=== PATIENT | male | born 1985 | race Caucasian/White ===

== ENCOUNTER → 2020-07-13 09:38 | Outpatient (BNVA) | payer OTHER, SELFPAY | PROVIDERS: PCP Internal Medicine; Visit Provider Physician Assistant ==

== ENCOUNTER 2020-07-21 07:20 | Outpatient (REF) | payer OTHER, SELFPAY ==
--- NOTE | 2020-07-21 07:22 | MR_ITS ---
EXAMINATION: MR KNEE WITHOUT CONTRAST, LEFT CLINICAL INFORMATION: Left knee pain. Status post slip and fall injury 1 1/2 weeks ago. Pain with walking and extension. History of ACL reconstruction 2 years ago. COMPARISON: Left knee MRI dated 06/16/2018. TECHNIQUE: MRI of the knee without contrast was performed using routine sequences on a high-field scanner. FINDINGS: MENISCI: Medial Meniscus: Tearing in the undersurface of the central third of the posterior horn. (5:), (4:-). Degenerative changes in the undersurface of the mid and posterior body (5:-). Lateral Meniscus: Intact. LIGAMENTS: Cruciate: Postsurgical changes of ACL reconstruction. There is complete tear of the reconstructed ACL fibers. Intact PCL. Collateral: Intact EXTENSOR MECHANISM: Intact ARTICULAR CARTILAGE/BONE: Patellofemoral Compartment: Normal Medial Compartment: Normal Lateral Compartment: Normal JOINT FLUID AND BURSAE: Physiologic joint space fluid. No effusion. MR/MR knee LT wo con IMPRESSION: Left knee: 1. Mild undersurface tearing in the central third of the posterior horn of the medial meniscus. Degenerative changes in the undersurface of the mid and posterior medial meniscal body. 2. Postsurgical changes of ACL reconstruction. Complete tear of the reconstructed ACL fibers. 3. Preserved tricompartmental articular cartilage. 4. Physiologic joint space fluid without effusion.
== END 2020-07-21 07:21 | disposition home or self-care (01) ==
LOC: HO.MRI 07:20
PROVIDERS: Visit Provider Physician Assistant
DX: S83.207A Unspecified tear of unspecified meniscus, current injury, left knee, initial encounter (principal)
CPT/HCPCS: 73721

== ENCOUNTER → 2020-08-04 12:38 | Outpatient (BNVA) | payer OTHER, SELFPAY | PROVIDERS: PCP Internal Medicine; Visit Provider Physician Assistant ==

== ENCOUNTER 2020-08-06 14:00 | Outpatient (RCR) | payer OTHER, SELFPAY ==
--- NOTE | 2020-07-23 12:42 | MHC.PT.OD ---
[facility] [place] Office [place] Office [place] Office [address] Beth Araiza 140 [facility] [phone] F: [phone] F: [phone] F: [phone] F: [phone] Physical Therapy Daily Note Diagnosis: [id number] Unspecified tear of unspecified meniscus, current injury, left initial encounter. signed by Catrina Elizondo PA-C date of order 07/13/2020. Date of Surgery: 08/30/2018: L Date of Evaluation: 07/16/20 Date of Treatment: 07/23/20 Treatments to Date: 3 Cancellations to Date: No Shows to Date: Authorized Visits: 60 Insurance End Date: Precautions/ Contraindications:OMPARISON: Left knee MRI dated 06/16/2018. TECHNIQUE: MRI of the knee without contrast was performed using routine sequences on a high-field scanner. FINDINGS: MENISCI: Medial Meniscus: Tearing in the undersurface of the central third of the posterior horn. (5:), (4:-). Degenerative changes in the undersurface of the mid and posterior body (5:-). Lateral Meniscus: Intact. LIGAMENTS: Cruciate: Postsurgical changes of ACL reconstruction. There is complete tear of the reconstructed ACL fibers. Intact PCL. Collateral: Intact EXTENSOR MECHANISM: Intact ARTICULAR CARTILAGE/BONE: Patellofemoral Compartment: Normal Medial Compartment: Normal Lateral Compartment: Normal JOINT FLUID AND BURSAE: Physiologic joint space fluid. No effusion. MR/MR knee LT wo con IMPRESSION: Left knee: 1. Mild undersurface tearing in the central third of the posterior horn of the medial meniscus. Degenerative changes in the undersurface of the mid and posterior medial meniscal body. 2. Postsurgical changes of ACL reconstruction. Complete tear of the reconstructed ACL fibers. 3. Preserved tricompartmental articular cartilage. 4. Physiologic joint space fluid without effusion. Dictated By:Ayse Ceja MD Signed By:<Electronically signed by Ayse Ceja MD in OV> Subjective: Pt had MRI see report above to see [facility] today at 1:30 to review findings of MRI. Has been expressing some improvement in pain of knee since start of care but continues to ambulate with flexed knee. Has been reporting constant L LE parathesias/cold which appears to be lumbar radiculopathy pt expressing history of HNP L5/S1- advised pt to reach out to PCP regarding this- would likely benefit from PT for this. Pain Score and Location: 9 L knee Objective Flowsheet: Tests & Measures -16 degrees ext to 135 flexion sx medial joint line Exercises did not do bike today 07/23/2020 Seated heel prop knee ext assessment -16 degrees Isometric quad set with bolster behind knee x 5 sec hold x 10R Encouraged/educated re: trial of isometric quad sets to tolerance Seated gastroc stretch with strap, seated HS stretch Seated HS stretch increased L radicular sx so modified in standing with less sx provocation. Trial of pball lumbar decompression as pt radicular sx are severe- advised to reach out to PCP/and or ortho re: extending prescription to treat this. Education re: heel prop knee ext stretch to tolerance at home Encouraged using dongjoy hinged mini ACL brace until he can determine what ortho recommends due to instability/pain/limited weight-bearing. Ankle pumps x 3 sets 10R SUPINE AAROM HEEL SLIDE reviewed unable to perform SLR due to lack of knee extension Education re: lumbar support/towel roll to ease sx Educated re: abdominal brace support x 5 sec hold x 2 sets 10R Education re: benefit in consulting/inquiring with MD regarding use of abdominal binder for during heavy loads/lifting tasks at work due to history of repeated abdominal surgery/hx hernia repair/ongoing back issues Educated pt how to apply ROCKTAPE to V strip to offload pressure tibiofemoral jt knee as it has reduced pain with previous application (it appears therapist may have omitted this in error from previous session) Pt educated re: application/removal/indications for use Therapist did not apply tape as he he was having follow up with ortho so they can assess knee in current state Gait training with bilateral axillary crutches to review sequencing with stairs and use of rail Pt reported was previously not holding railing Educated to put both crutches under one arm always use rail on the other side, ascend R LE, descend L LE to reduce risk of falls. Gait training with axillary crutches on level surface to promote heel strike>toe off to tolerance weightbear as tolerated. Modalities Trial of pulsed US 3.3 MHZ to Medial aspect L knee with small bolster under knee at 1.0 springer cm2 x 8 minutes in effort to reduce pain/inflammation. Assessment: Pt to see orthopedics today to review MRI outcome; Await plan Pt advised to consult with PCP re: ongoing sx of what appears to be [id number] radiculopathy. Upon brief screening pt able to perform modified heel raise on the L LE, but reports constant cold feeling in extremity. Advised him to trial pball traction lying as it relieved both pressure on his L knee and L lumbar sx. Encouraged heel prop extension to tolerance in goal of achieving knee extension AROM>AAROM. Pt presented to office today with improved ability to rise and sit from a chair, however tolerance for weight-bearing and knee ext remains limited due to extent of findings on MRI. Therapist did not discuss MRI with patient- pt to see MD office today at 1:30 to go over outcome of MRI. PT Plan: Await plan from orthopedics- PT AWAITING UPDATED ORDERS Improve knee extension> quad strength> weight-bearing status/gait training 2x/week x 4 weeks Short Term Goals: 1. AAROM knee ext -10. 2. AROM knee ext -20. 3. SLR into flexion with good eccentric quad control. 4. Demonstrate symmetrical weight bearing step through pattern with two axillary crutches. Intermediate Goals: 1. L knee AROM 0 to 130 degrees. 2. Strength quadriceps 5/5. 3. Strength HS 5/5. 4. Reciprocal stair negotiation without use of AD. 5. I HEP MOD I. Electronically signed by: Edie Landry, PT, DPT
== END 2020-09-10 11:07 | disposition other institution (70) ==
LOC: HO.PTWFD 14:00
PROVIDERS: PCP Internal Medicine; Visit Provider Physician Assistant
DX: S83.207D Unspecified tear of unspecified meniscus, current injury, left knee, subsequent encounter (principal)
CPT/HCPCS: 97014; 97035; 97110; 97116; 97161; 97530

== ENCOUNTER 2020-08-20 06:05 | Day surgery (SDC) | payer OTHER, SELFPAY ==
[2020-08-05 18:46] VITALS: BMI 28.5
[2020-08-13 19:48] VITALS: BMI 28.5
--- NOTE | 2020-08-19 08:27 | P.CONAN_ITS ---
Documented by User: Eli Goel 08/19/20 08:28 HPI - Anesthesia Eval Consult details Narrative: 34yo M for ACL Repair Arthroscopic Revision with Allograft PMFSH Active Problems Active Problems: All Active Problems (Updated 08/13/20 @ 19:43 by Naty Vega RN) Tear of meniscus of left knee (Acute) Tears of meniscus and ACL of left knee (Acute) S/P ACL reconstruction (Acute) Past Medical History Medical History Anxiety Depression Diverticulosis History of diverticulitis Hypertension Ulcerative colitis Surgical History Surgical History (Updated 08/20/20 @ 07:47 by Ivonne Salcedo) H/O colectomy H/O exploratory laparotomy (~2019) History of appendectomy History of colonoscopy History of incisional hernia repair Social History Social History Smoking Status: Never smoker Use of substances other than those prescribed or required for medical reasons: Yes Substance Use Frequency: Weekly Advance Directives: No Advance Directives Information Provided: No Advance Directives on File: No Recently lost weight without trying: No Current occupation: [email or web address] - Right Handed Meds Allergies Allergy/AdvReac Type Severity Reaction Status Date / Time No Known Allergies Allergy Verified 08/20/20 06:26 [No Known Allergies*] Home Medications Medication Instructions Recorded Confirmed Last Taken Type citalopram 10 mg tablet 5 mg PO DAILY 07/13/20 08/20/20 08/20/20 History 0515 lisinopril 5 mg tablet 7.5 mg PO DAILY 07/13/20 08/05/20 Unknown History mesalamine 400 mg capsule (with 1,200 mg PO DAILY 07/13/20 08/05/20 Unknown History delayed release tablets inside) Exam Exam Date and Time: August 19, 2020 0827 Height,Weight and Vital Signs: Height 6 ft Weight 95.254 kg Assessment and Plan Assessment Anesthesia Assessment: Chart Reviewed Documented by User: Ivonne Salcedo 08/20/20 07:50 PMFSH Past Medical History Medical History Anxiety Depression Diverticulosis History of diverticulitis Hypertension Ulcerative colitis Family History Family history of problems with anesthesia: No Surgical History Surgical History (Updated 08/20/20 @ 07:47 by Ivonne Salcedo) H/O colectomy H/O exploratory laparotomy (~2019) History of appendectomy History of colonoscopy History of incisional hernia repair History of Problems with Anesthesia: No Social History Social History Smoking Status: Never smoker Use of substances other than those prescribed or required for medical reasons: Yes Substance Use Frequency: Weekly Advance Directives: No Advance Directives Information Provided: No Advance Directives on File: No Recently lost weight without trying: No Current occupation: [employer] - Right Handed Meds Allergies Allergy/AdvReac Type Severity Reaction Status Date / Time No Known Allergies Allergy Verified 08/20/20 06:26 [No Known Allergies*] Home Medications Medication Instructions Recorded Confirmed Last Taken Type citalopram 10 mg tablet 5 mg PO DAILY 07/13/20 08/20/20 08/20/20 History 0515 lisinopril 5 mg tablet 7.5 mg PO DAILY 07/13/20 08/05/20 Unknown History mesalamine 400 mg capsule (with 1,200 mg PO DAILY 07/13/20 08/05/20 Unknown History delayed release tablets inside) Exam Height,Weight and Vital Signs: Vital Signs Temp Pulse Resp BP Pulse Ox 08/20/20 06:13 97.1 F 93 18 155/108 H 97 Airway Mallampati Class: II TM Dist: >3cm Neck ROM: Full Heart: RRR Lungs: CTAB Assessment and Plan Assessment Anesthesia Assessment: Anesthesia Plan Discussed and Chart Reviewed Final Anesthetic Review NPO: Yes ASA Class: II Final Preanesthetic Review: No Changes in Pt Med Stat, Meds/Allgs Chart Reviewed and Anes Risks/Benef Reviewed Patient Risk: Low Procedure Risk: Low Assessment/Block/Sedation in SS: Assess/Block/Sedation- Anesthetic Plan Anesthetic Plan: GA and Regional Block (Left adductor canal block) Disposition: Standard PACU
[2020-08-20] VITALS (16 sets, daily range): BP systolic 133–167; BP diastolic 83–108; PULSE 79–101; RESP 16–31; TEMP 36.2–36.5; O2SAT 92–100
[2020-08-20] MEDS: Lactated Ringers 1,000 ML 100 ML IVCONT (06:39)
--- NOTE | 2020-08-20 07:27 | MHC.SHP ---
Pre-Procedural Eval Section A The patient is an INPATIENT: No Changes since office visit: No Cold of Flu in the past 2 weeks, No New Medical Problems, No Changes in Medication and No Patient answered all questions The History & Physical has been completed within 30 days and I have reviewed it.: Yes Section B Chief Complaint: knee pain Allergies: Allergies Allergy/AdvReac Type Severity Reaction Status Date / Time No Known Allergies Allergy Verified 08/20/20 06:26 [No Known Allergies*] Plan I have reviewed the history and physical and performed a pertinent physical examination on my patient. No changes have occurred unless specified.
--- NOTE | 2020-08-20 10:04 | W.PM.OPN ---
Operative Note Operative Note Date of Service: 08/20/20 Narrative: OPERATIVE NOTE-ACL RECONSTRUCTION SURGEON: Dr Imani Kimball) Instrum METAL POLISHER: Pattie CRUZ , Catrina CRUZ PREOP DIAGNOSIS: Recurrent ACL tear right knee POSTOP DIAGNOSIS: Same OPERATIVE PROCEDURE: Revision ACL reconstruction with bone patellar bone allograft right knee CLINICAL NOTE: This gentleman who 2 years ago underwent successful ACL reconstruction suffered another injury. She he has recurrent instability. Investigations confirmed a re-tear. Therefore after explaining the risks benefits and alternatives and answering all his questions was mutually agreed upon cared following procedure. MOTION: Full range of motion STABILITY: Positive Sloan's and pivot shift. Collateral ligaments intact OPERATIVE DETAILS PREPARATION: GA, regional block, standard technique, tourniquet to 300 mm of mercury for 81 minutes SURGICAL TIME-OUT: Patient is identified. Procedure confirmed. Site confirmed. Medical and allergy history is reviewed. Preoperative antibiotics were given. Standard DVT prophylaxis in place. All other items discussed and agreed upon. INCISIONS: Superolateral, inferolateral, inferomedial stab incisions. Proximal medial metaphyseal incision for tibial tunnel and graft insertion SYNOVIUM: Clear SYNOVIAL fluid: Clear MEDIAL COMPARTMENT: The tibial and femoral articular surfaces were intact. The medial meniscus is was explored fully intact LATERAL COMPARTMENT: Lateral meniscus was intact. The tibial femoral articular surfaces intact. Popliteus tendon intact ANTERIOR COMPARTMENT: . Medial lateral gutters clear. suprapatellar pouch clear. Patella and femoral articular surfaces were intact. INTERCONDYLAR NOTCH: The ACL was obviously torn. Using combination of the ArthroCare Wand and the Ultra cut, the remnants of the ACL were removed. The PCL was identified. The hieq-mca-zze position was completely cleared. The Ultra cut was used in order to identify the ctcf-mtq-zpd position more clearly. The Arthrex guide was then used in standard fashion through the proximal medial metaphyseal incision to establish the tibial tunnel. The guidewire was inserted was deemed to be in a good position and then it was over-reamed with a 10 mm Reamer. The tunnel was then fully rasped. At the same time as the tibial tunnel was being made the graft was prepared. It was measured to be 100 mm with 2 300 mm blocks. On the femoral side is singular drill hole was made to prepare for the Jacome [employer] Nephew endo-button. The tibial side had 2 drill holes and Tycron sutures placed through it. Both bone blocks were 30 mm. With the knee flexed approximately 85 degrees and in standard position a, a Beath needle was drilled out through the anterolateral cortex. The guidewire was then over-reamed to a 35 mm depth. The bony fragments were then all removed. From outside in the wire was measured and it was determined that a 60 mm endo button was necessary. And therefore this was brought up and attached to the bone block. After the knee had been irrigated of loose bony fragments the sutures that were in the Endobutton placed through the Beath needle. It was then pulled out through the anterolateral is a side of the knee. The graft was then passed through the tibial tunnel across the PCL into the femoral condyle tunnel successfully. The Endobutton was then deployed. It was then cycled a few times. It appeared to be very solid but approximately 4 mm of the bone block was protruding it. Therefore has elected to get a fluoroscopic image to confirm the position of the Endobutton. Simultaneous to this we let the tourniquet down. It was in the appropriate place. Therefore with the knee flexed 15 degrees and over a guidewire a 25 by 9 mm BioScrew was inserted with excellent purchase. The knee was then placed through range of motion had full extension full flexion is. Had a negative Sloan and pivot shift therefore proceeded closure. All incisions were closed with interrupted 3-0 Dexon Dermabond Steri-Strips and sterile dressing. The leg was placed in a brace. The patient's anesthesia was then reversed and transferred to the bed then to the recovery good condition. Intraoperatively there was 10-15 cc blood loss. No complications.
[2020-08-20] MEDS: Acetaminophen 325 MG TABLET 975 MG PO (10:14)
[2020-08-20] MEDS: oxyCODONE HCl Immed Release 5 MG TABLET 10 MG PO (10:15)
[2020-08-20] MEDS: HYDROmorphone HCl 0.5 MG/0.5 ML SYRINGE 0.25 MG IVPUSH ×5 (10:19→11:05)
[2020-08-20] MEDS: Ketorolac Tromethamine 15 MG/ML VIAL IVPUSH (11:03)
== END 2020-08-20 12:23 | disposition home or self-care (01) ==
PROVIDERS: PCP Internal Medicine; Visit Provider Orthopaedic Surgery
PROC: (CPT 29888; principal; 2020-08-20 07:30)
DX: S83.511A Sprain of anterior cruciate ligament of right knee, initial encounter (principal); M23.611 Other spontaneous disruption of anterior cruciate ligament of right knee; S89.91XA Unspecified injury of right lower leg, initial encounter; X58.XXXA Exposure to other specified factors, initial encounter; Y93.9 Activity, unspecified; Y92.9 Unspecified place or not applicable; Y99.8 Other external cause status; I10 Essential (primary) hypertension; Z79.899 Other long term (current) drug therapy
CPT/HCPCS: 29888; C1713; C1763; C1769; J0171; J0690; J1100; J1170; J1885; J2250; J2405; J3010

== ENCOUNTER → 2020-09-01 09:50 | Outpatient (BNVA) | payer OTHER, SELFPAY | PROVIDERS: PCP Internal Medicine; Visit Provider Physician Assistant ==

== ENCOUNTER → 2020-09-15 11:37 | Outpatient (BNVA) | payer OTHER, SELFPAY | PROVIDERS: PCP Internal Medicine; Visit Provider Physician Assistant ==

== ENCOUNTER → 2020-09-29 08:56 | Outpatient (BNVA) | payer OTHER, SELFPAY | PROVIDERS: PCP Internal Medicine; Visit Provider Physician Assistant ==

== ENCOUNTER → 2020-10-23 09:03 | Outpatient (BNVA) | payer OTHER, SELFPAY | PROVIDERS: Visit Provider Physician Assistant ==

== ENCOUNTER → 2020-10-28 09:56 | Outpatient (BNVA) | payer OTHER, SELFPAY | PROVIDERS: Visit Provider Physician Assistant ==

== ENCOUNTER 2020-10-29 08:55 | Day surgery (SDC) | payer OTHER, SELFPAY ==
--- NOTE | 2020-10-28 14:15 | P.CONAN_ITS ---
Documented by User: Eli Goel 10/28/20 14:16 HPI - Anesthesia Eval Consult details Narrative: 34yo M for Left I&D,debridement of knee s/p L ACL repair with GA 07/2020 prn opioids PMFSH Active Problems Active Problems: All Active Problems (Updated 10/28/20 @ 13:00 by Pattie Grant PA-C) Abscess involving suture (Acute) S/P reconstruction of anterior cruciate ligament (Acute) Tear of meniscus of left knee (Acute) Tears of meniscus and ACL of left knee (Acute) S/P ACL reconstruction (Acute) Past Medical History Medical History Anxiety Depression Diverticulosis History of diverticulitis Hypertension Ulcerative colitis Family History Family history of problems with anesthesia: No Surgical History Surgical History H/O colectomy H/O exploratory laparotomy (~2019) History of appendectomy History of colonoscopy History of incisional hernia repair History of Problems with Anesthesia: No Social History Social History Smoking Status: Never smoker Use of substances other than those prescribed or required for medical reasons: Yes Substance Use Frequency: Daily Are you DNR?: No Advance Directives: No Advance Directives Information Provided: Yes Current occupation: [employer] - [employer] Meds Allergies Allergy/AdvReac Type Severity Reaction Status Date / Time No Known Allergies Allergy Verified 10/28/20 10:16 [No Known Allergies*] Home Medications Medication Instructions Recorded Confirmed Last Taken Type citalopram 10 mg tablet 5 mg PO DAILY 07/13/20 08/20/20 08/20/20 History 0515 lisinopril 5 mg tablet 7.5 mg PO DAILY 07/13/20 08/05/20 10/29/20 History mesalamine 400 mg capsule (with 1,200 mg PO DAILY 07/13/20 08/05/20 Unknown History delayed release tablets inside) Exam Exam Date and Time: October 28, 2020 1415 Assessment and Plan Assessment Anesthesia Assessment: Chart Reviewed Documented by User: Ivonne Salcedo 10/29/20 09:28 PMFSH Past Medical History Medical History Anxiety Depression Diverticulosis History of diverticulitis Hypertension Ulcerative colitis Surgical History Surgical History H/O colectomy H/O exploratory laparotomy (~2019) History of appendectomy History of colonoscopy History of incisional hernia repair Social History Social History Smoking Status: Never smoker Use of substances other than those prescribed or required for medical reasons: Yes Substance Use Frequency: Daily Are you DNR?: No Advance Directives: No Advance Directives Information Provided: Yes Current occupation: [employer] m[employer] - [employer] Meds Allergies Allergy/AdvReac Type Severity Reaction Status Date / Time No Known Allergies Allergy Verified 10/28/20 10:16 [No Known Allergies*] Home Medications Medication Instructions Recorded Confirmed Last Taken Type citalopram 10 mg tablet 5 mg PO DAILY 07/13/20 08/20/20 08/20/20 History 0515 lisinopril 5 mg tablet 7.5 mg PO DAILY 07/13/20 08/05/20 10/29/20 History mesalamine 400 mg capsule (with 1,200 mg PO DAILY 07/13/20 08/05/20 Unknown History delayed release tablets inside) Exam Height,Weight and Vital Signs: Vital Signs Temp Pulse Resp BP Pulse Ox 10/29/20 09:06 97.6 F 87 16 155/99 H 97 Airway Mallampati Class: II TM Dist: >3cm Neck ROM: Full Heart: RRR Lungs: CTAB Assessment and Plan Assessment Anesthesia Assessment: Anesthesia Plan Discussed and Chart Reviewed Final Anesthetic Review NPO: Yes ASA Class: II Final Preanesthetic Review: No Changes in Pt Med Stat, Meds/Allgs Chart Reviewed, Consent Obtained/Reviewed and Anes Risks/Benef Reviewed Patient Risk: Low Procedure Risk: Low Assessment/Block/Sedation in SS: Assess/Block/Sedation-SS Anesthetic Plan Anesthetic Plan: GA Disposition: Standard PACU
[2020-10-29] VITALS (11 sets, daily range): BP systolic 108–155; BP diastolic 59–103; PULSE 69–87; RESP 16–20; TEMP 36.4–36.5; O2SAT 97–100; BMI 32.5
--- NOTE | 2020-10-29 07:23 | MHC.SHP ---
Pre-Procedural Eval Section A The patient is an INPATIENT: No Changes since office visit: No Cold of Flu in the past 2 weeks, No New Medical Problems, No Changes in Medication and No Patient answered all questions The History & Physical has been completed within 30 days and I have reviewed it.: Yes Section B Chief Complaint: abscess lower limb Allergies: Allergies Allergy/AdvReac Type Severity Reaction Status Date / Time No Known Allergies Allergy Verified 10/28/20 10:16 [No Known Allergies*] Plan I have reviewed the history and physical and performed a pertinent physical examination on my patient. No changes have occurred unless specified.
[2020-10-29] MEDS: Lactated Ringers 1,000 ML 100 ML IVCONT (09:17)
--- NOTE | 2020-10-29 11:01 | W.PM.OPN ---
Operative Note Operative Note Date of Service: 10/29/20 Narrative: OPERATIVE PROCEDURE NOTE SURGEON: Dr. 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 The lower metaphyseal tibial incision has had intermittent did discharge. It could be a stitch abscess. It. That it was cleared up but had a little bit of drainage and therefore after explaining the risks benefits and alternatives and answering all his questions to his which agreed upon care following procedure OPERATIVE PROCEDURE Under an LMA anesthetic the patient was placed supine on the operating table. The left leg was prepped and draped in standard fashion. Surgical time-out was then performed patient's identified. Procedure confirmed. Medical and allergy history was reviewed. No preoperative antibiotics were given. DVT prophylaxis standard in place. All other items discussed and agreed upon. The small incision was opened. There was no significant discharge prior to the incision. It was then infiltrated with 4 cc of 0.25% bupivacaine with epinephrine. The wound was dissected down to the level of the bone. There was no significant purulence there were some fat necrosis. It was curetted. All the tissue was clean and bleeding at the end of this. The edge of the wounds were trimmed. It was then thoroughly irrigated. The wound was then closed with interrupted 2 0 nylon. Sterile dressing was then applied. A 2 g dose of capsule was given. The patient then had the anesthesia reversed. They were transferred to the recovery room in good condition. Intraoperatively there was no complications
[2020-10-29] MEDS: fentaNYL citrate/PF 100 MCG/2 ML VIAL 25 MCG IVPUSH ×4 (11:18→11:45)
[2020-10-29] MEDS: Acetaminophen 325 MG TABLET 650 MG PO (11:30)
[2020-10-29] MEDS: oxyCODONE HCl Immed Release 5 MG TABLET PO ×2 (11:30→11:57)
[2020-10-29] MEDS: Ketorolac Tromethamine 15 MG/ML VIAL IVPUSH (12:06)
== END 2020-10-29 13:44 | disposition home or self-care (01) ==
PROVIDERS: PCP Internal Medicine; Visit Provider Orthopaedic Surgery
PROC: (CPT 10180; principal; 2020-10-29 11:00)
DX: T81.41XA Infection following a procedure, superficial incisional surgical site, initial encounter (principal); L08.9 Local infection of the skin and subcutaneous tissue, unspecified; I10 Essential (primary) hypertension; Z79.899 Other long term (current) drug therapy
CPT/HCPCS: 10180; J0690; J1885; J2250; J2405; J3010

== ENCOUNTER → 2020-11-04 09:07 | Outpatient (BNVA) | payer OTHER, SELFPAY | PROVIDERS: Visit Provider Physician Assistant ==

== ENCOUNTER → 2020-11-05 09:06 | Outpatient (BNVA) | payer OTHER, SELFPAY | PROVIDERS: Visit Provider Physician Assistant ==

== ENCOUNTER → 2020-11-10 10:15 | Outpatient (BNVA) | payer OTHER, SELFPAY | PROVIDERS: Visit Provider Physician Assistant ==

== ENCOUNTER → 2020-11-13 08:57 | Outpatient (BNVA) | payer OTHER, SELFPAY | PROVIDERS: Visit Provider Orthopaedic Surgery ==

== ENCOUNTER 2020-11-16 08:26 | Day surgery (SDC) | payer OTHER, SELFPAY ==
--- NOTE | 2020-11-13 14:14 | P.CONAN_ITS ---
Documented by User: Eli Goel 11/13/20 14:14 HPI - Anesthesia Eval Consult details Narrative: 34yo M for Left I&D,debridement of knee s/p L knee I&D 10/29/20 with GA-LMA 5 s/p L ACL repair with GA 07/2020 prn opioids PMFSH Active Problems Active Problems: All Active Problems (Updated 10/28/20 @ 13:00 by Pattie Grant PA-C) Abscess involving suture (Acute) S/P reconstruction of anterior cruciate ligament (Acute) Tear of meniscus of left knee (Acute) Tears of meniscus and ACL of left knee (Acute) S/P ACL reconstruction (Acute) Past Medical History Medical History Anxiety Depression Diverticulosis History of diverticulitis Hypertension Ulcerative colitis Family History Family history of problems with anesthesia: No Surgical History Surgical History H/O colectomy H/O exploratory laparotomy (~2019) History of appendectomy History of colonoscopy History of incisional hernia repair History of Problems with Anesthesia: No Social History Social History Alcohol intake: never Smoking Status: Never smoker Use of substances other than those prescribed or required for medical reasons: Yes Substance Use Frequency: Weekly Are you DNR?: No Advance Directives: No Advance Directives Information Provided: Yes 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 Allergy/AdvReac Type Severity Reaction Status Date / Time No Known Allergies Allergy Verified 11/13/20 09:04 [No Known Allergies*] Home Medications Medication Instructions Recorded Confirmed Last Taken Type citalopram 10 mg tablet 5 mg PO DAILY 07/13/20 08/20/20 08/20/20 History 0515 lisinopril 5 mg tablet 7.5 mg PO DAILY 07/13/20 08/05/20 10/29/20 History mesalamine 400 mg capsule (with 1,200 mg PO DAILY 07/13/20 08/05/20 Unknown History delayed release tablets inside) Exam Exam Date and Time: November 13, 2020 1414 Assessment and Plan Assessment Anesthesia Assessment: Chart Reviewed Documented by User: Ivonne Salcedo 11/16/20 09:56 [facility] Past Medical History Medical History Anxiety Depression Diverticulosis History of diverticulitis Hypertension Ulcerative colitis Surgical History Surgical History H/O colectomy H/O exploratory laparotomy (~2019) History of appendectomy History of colonoscopy History of incisional hernia repair Social History Social History Alcohol intake: never Smoking Status: Never smoker Use of substances other than those prescribed or required for medical reasons: Yes Substance Use Frequency: Weekly Are you DNR?: No Advance Directives: No Advance Directives Information Provided: Yes Current occupation: [employer] - Right Handed Meds Allergies Allergy/AdvReac Type Severity Reaction Status Date / Time No Known Allergies Allergy Verified 11/13/20 09:04 [No Known Allergies*] Home Medications Medication Instructions Recorded Confirmed Last Taken Type citalopram 10 mg tablet 5 mg PO DAILY 07/13/20 08/20/20 08/20/20 History 0515 lisinopril 5 mg tablet 7.5 mg PO DAILY 07/13/20 08/05/20 10/29/20 History mesalamine 400 mg capsule (with 1,200 mg PO DAILY 07/13/20 08/05/20 Unknown History delayed release tablets inside) Exam Height,Weight and Vital Signs: Vital Signs Temp Pulse Resp BP Pulse Ox 11/16/20 08:52 98.2 F 78 16 145/95 H 98 Airway Mallampati Class: II TM Dist: >3cm Neck ROM: Full Heart: RRR Lungs: CTAB Assessment and Plan Assessment Anesthesia Assessment: Anesthesia Plan Discussed and Chart Reviewed Final Anesthetic Review NPO: Yes ASA Class: II Final Preanesthetic Review: No Changes in Pt Med Stat, Meds/Allgs Chart Reviewed, Consent Obtained/Reviewed and Anes Risks/Benef Reviewed Patient Risk: Low Procedure Risk: Low Assessment/Block/Sedation in SS: Assess/Block/Sedation-SS Anesthetic Plan Anesthetic Plan: GA Disposition: Standard PACU
[2020-11-16] VITALS (14 sets, daily range): BP systolic 120–146; BP diastolic 70–96; PULSE 68–96; RESP 16–20; TEMP 36.6–37.2; O2SAT 97–100; BMI 32.5
--- NOTE | 2020-11-16 10:29 | MHC.SHP ---
Pre-Procedural Eval Section A The patient is an INPATIENT: No Changes since office visit: No Cold of Flu in the past 2 weeks, No New Medical Problems, No Changes in Medication and No Patient answered all questions The History & Physical has been completed within 30 days and I have reviewed it.: Yes Section B Chief Complaint: open wound infection Allergies: Allergies Allergy/AdvReac Type Severity Reaction Status Date / Time No Known Allergies Allergy Verified 11/13/20 09:04 [No Known Allergies*] Plan I have reviewed the history and physical and performed a pertinent physical examination on my patient. No changes have occurred unless specified.
[2020-11-16] MEDS: vancomycin HCL 1,500 MG in 0.9 % Sodium Chloride 500 ML 333.33 MG IV (11:17)
[2020-11-16] MEDS: fentaNYL citrate/PF 100 MCG/2 ML VIAL 50 MCG IVPUSH ×6 (11:35→12:20)
[2020-11-16] MEDS: Acetaminophen 325 MG TABLET 975 MG PO (11:39)
[2020-11-16] MEDS: oxyCODONE HCl Immed Release 5 MG TABLET 10 MG PO (11:40)
--- NOTE | 2020-11-17 14:25 | P.OP_ITS ---
Operative Note Operative Note Date of Service: 11/16/20 Narrative: OPERATIVE PROCEDURE NOTE SURGEON: Dr. Diallo (Elaina) Instr[employer] SUPERVISOR AIR CONDITIONING INSTALLER: Catrina Elizondo PAC PREOP DIAGNOSIS: Wound infection left knee POSTOP DIAGNOSIS: Same OPERATIVE PROCEDURE: Irrigation debridement wound infection left knee CLINICAL NOTE: This gentleman returns regards to his left knee. He had an ACL reconstruction it was before 3 months ago. Postoperatively over the last few weeks he had had a small purulence area over the inferior tibial incision. It appears that it likely was stitch abscess. But despite that he was taken the operating room for small irrigation and debridement. This was performed everything looked fine but he developed again a small area of purulent discharge and therefore after explaining the risks benefits and alternatives and answering all his questions which agreed upon care following procedure OPERATIVE PROCEDURE Under general anesthetic the patient placed supine on the operating table pneumatic tourniquet cuff was placed around the upper left thigh inflated to 3 mm Hg again in case the left knee was then prepped and draped in standard fashion. Surgical time-out was then performed patient's identified procedure confirmed. Site confirmed. Medical and allergy history were reviewed. No preoperative antibiotics. Standard DVT prophylaxis place. All other items discussed and agreed upon. An incision was made extended from the medial tibial metaphyseal incision. It was extended both medially and laterally and the area scar tissue was excised in elliptical fashion. This take us down through the subcutaneous tissue. There was a small area what it looked like necrotic/purulence tissue that was noted. This was sent for culture. Following this it was debrided elevated off the metaphyseal bone the soft tissues. There was thickened scar tissue some of this was debrided. The tibial tunnel location was identified. By [employer] was noted. A with a little toggle of the bottom 3rd of it broke away. The rest of it was fully fix. There is some prominence of the bone plug but it was firmly attached. At this point curette was used to clear the area and bring it to bleeding tissue in the bone as well as in the soft tissue. There was no evidence of any significant area of infection either prior to the debridement and certainly not afterwards. At this point we 3rd early irrigated the area and then proceeded to closure. 200 nylon was used to approximate the wound. Sterile dressing was then applied. The tourniquet was let down total tourniquet time to 22 minutes. Intraoperatively after the cultures were taken 1500 mg of vancomycin was started. There was no significant blood loss or other complications.
== END 2020-11-16 14:08 | disposition home or self-care (01) ==
PROVIDERS: PCP Internal Medicine; Visit Provider Orthopaedic Surgery
PROC: (CPT 11044; principal; 2020-11-16 10:00)
DX: T81.41XA Infection following a procedure, superficial incisional surgical site, initial encounter (principal); I10 Essential (primary) hypertension; Z79.899 Other long term (current) drug therapy
CPT/HCPCS: 11044; 87071; 87205; J1170; J1885; J2250; J2405; J3010; J3370

== ENCOUNTER → 2020-11-20 09:06 | Outpatient (BNVA) | payer OTHER, SELFPAY | PROVIDERS: PCP Internal Medicine; Visit Provider Physician Assistant ==

== ENCOUNTER → 2020-11-25 11:21 | Outpatient (BNVA) | payer OTHER, SELFPAY | PROVIDERS: PCP Internal Medicine; Visit Provider Physician Assistant ==

== ENCOUNTER 2021-01-04 13:00 | Outpatient (RCR) | payer OTHER, SELFPAY ==
--- NOTE | 2020-08-25 11:43 | MHC.PT.EP ---
[facility] [place] Office [place] Office [place] Office [address] Beth Araiza [address] [phone] F: [phone] F: [phone] F: [phone] F: [phone] Physical Therapy Plan of Care Date of Evaluation: 08/25/20 Date of Surgery: 08/20/2020 Diagnosis: S/P ACL reconstruction - allograft Assessment: The patient arrived s/p ACL repair on 08/20/20. Upon arrival in a wheelchair he still had surgical draping. His brace had fallen down significantly and he demonstrated increased apprehension, and reported increased anxiety. He reports not doing a single thing since surgery except being on the couch. He was educated proper donning/doffing of the brace, and landmarks to ensure proper fit. He has reduced knee ROM, strength, and poor functional mobility as expected following surgery. Pt had poor activity tolerance and reported lightheadedness and nausea with brace removal, and demonstration of one exercise for HEP (resting heel on the bed.) I demonstrated stair training using the crutches as a cane rather than under the arm and use of HR. I discussed protective stair mechanics. Pt practiced his HEP with me, but again poor activity tolerance noted. He got nauseous and dizzy and required laying down with knee on pillow, which cleared nausea. He will need practice with gait training, ROM within protocol restrictions, review of stair training, donning/doffing brace, and improved bed mobility. Please note hip strength and ROM not assessed today due to patient's poor activity tolerance and presence of nausea/dizziness which required rest breaks. Frequency and Duration: The patient will be seen 2x/week x 12 weeks. Short Term Goals: 2 weeks 1. The patient to be able to independently don and doff his brace to help with compliance. 2. The patient to be able to properly demonstrate crutch and stair negotiation to improve safety with stairs. 3. Pt to have full passive knee flexion to avoid Cyclops lesion. 4. Pt to be able to demonstrate proper heel to toe reciprocal gait pattern with use of crutches as needed to help normalize movement. Furnace Door Tender Goals: 1. The patient to be able to have 5/5 quad strength in left LE for return to functional activity 2. Pt to be able to have full symmetrical knee flexion to return to PLOF 3. Pt to be able to hold squat position for greater than 30 seconds at a time to show improved quad endurance for the patient to return to PLOF and recreational goals. 4. Pt to be able to tolerate lateral movements such as side shuffle to tolerate dynamic movement. Treatment Plan: Modalities to reduce pain, spasms and effusion. Manual therapy to restore motion and function. Therapeutic exercise to improve strength and flexibility. Neuromuscular re-education for posture and balance. Therapeutic activities to return to functional activities of daily living. Electronically signed by: Dottie Simpson PT DPT 1 Please sign and return to therapist. Thank you for your referral.
--- NOTE | 2020-08-31 13:26 | MHC.PT.OD ---
[facility] [place] Office [place] Office [place] Office [address] Beth Araiza [address] [phone] F: [phone] F: [phone] F: [phone] F: [phone] Physical Therapy Daily Note Diagnosis: S/P ACL reconstruction - allograft Date of Surgery: 08/20/2020 Date of Evaluation: 08/25/20 Date of Treatment: 08/31/20 Treatments to Date: 3 Cancellations to Date: No Shows to Date: Authorized Visits: Insurance End Date: Precautions/ Contraindications:Activity Restrictions or Additional Instructions: brace locked straight with walking and sleeping. may unlock brace when sitting. may remove brace when sitting may full weight bear. crutches at discharge. May progress to single to no crutches as able may change drsg at 72 hours if needed discharge with prescription for analgesic start PT within 5-7 days follow up in office in 10-14 days Subjective: Pt reported went out to the grocery store over the weekend Feels stronger today and was happy with his progress thus far. Pain Score and Location: 5 joint line Objective Flowsheet: Tests & Measures -11 to 90 AAROM -8 with post ice Exercises AROM knee ext -11 degrees at start of session Isometric QS at 0, 30, 45 x 5 sec hold x 20R SLR into flexion mod range x 4 sets of 5R without brace Reapplied knee immobilizer locked in extension: -2 sets 10R for SL hip abd - 4 sets 5R for SL hip add - 2 sets 10R for prone hip ext Isometric HS set x 5 sec hold x 2 sets 5R Supine heel slides to 90 degrees with strap x 2 sets 5R Seated heel slides in sitting with brace unlocked to 60 degrees Gastroc stretch with strap x 20 sec hold x 5R Heel prop knee extension stretch with ice x 10 minutes at end of session. -8 post ice Pt educated re donning doffing brace, bed mobility with quad activation. Educated how to wrap/rewrap knee with kamila bandage with avoidance of having knee overly tight or compressive. Reviewed how to lock/unlock knee ext for sitting positio- encouraged to unlock and open brace when sitting. Encouraged gentle unlocking of brace when sitting only to improve ROM flexion tolerance and to ease mobility when sitting. Pt demonstrated/verbalized carryover for ensuring knee ext brace is locked -10 for ambulation. Educated reviewed/ weaning from two crutches to use of one crutch, WBAT increasing weight bearing on L LE with brace locked in knee extension. Pt educated needs to keep brace locked for extension at all times now due to weakness. Encouraged icing more frequently with heel prop extension Reviewed prone lying with press-ups to address L lumbar radiculopathy sx with brace on locked Modalities Assessment: Pt has attended 3 sessions of PT since surgery, AROM -8 to 90 AAROM knee ROM today with significant skin irritation noted around perimeter of gauze dressings. Pt reported has now been taking pain medication intermittently, taking tylenol 2x/daily. He has been icing knee once in awhile but was educated to perform HEP/ice more consistently to aide in pain/edema. Improved tolerance for activity today with no report of nausea/feeling lightheaded. Pt able to complete SLR without lag I of brace but demonstrates low endurance. He has been educated to use brace for 4 way SLR at home with goal of progressing to 10>20>30 reps as able. Pt has been expressing intermittent L LE tingling in L heel with past history of sciatica sx. Lateral dressing on L knee has greater yellow drainage than last week. Pt was able to apply demonstrate improved weight-bearing tolerance, continues to present to office with both crutches; we discussed weaning as tolerated. Will progress to unlocking brace during ambulation once he has good quad control. PT Plan: Progress Knee ext>flex ROM, strength progressing to CKC as tolerated per protocol. Pt to see Dr. Stark tomorrow for follow-up at 10am. Short Term Goals: 2 weeks 1. The patient to be able to independently don and doff his brace to help with compliance. 2. The patient to be able to properly demonstrate crutch and stair negotiation to improve safety with stairs. 3. Pt to have full knee extension. 4. Pt to be able to demonstrate proper heel to toe reciprocal gait pattern with use of crutches as needed to help normalize movement. 5. ROM AROM 0to 90 flexion. Manager Event Goals: 1. The patient to be able to have 5/5 quad strength in left LE for return to functional activity 2. Pt to be able to have full symmetrical knee flexion to return to PLOF 3. Pt to be able to hold squat position for greater than 30 seconds at a time to show improved quad endurance for the patient to return to PLOF and recreational goals. 4. Pt to be able to tolerate lateral movements such as side shuffle to tolerate dynamic movement. 5. AROM L knee 0-130. Electronically signed by: Edie Landry, PT, DPT
--- NOTE | 2020-09-15 11:19 | MHC.PT.OD ---
[facility] [place] [facility] [place] [facility] [place] Office [address] Beth Araiza [address] [phone] F: [phone] F: [phone] F: [phone] F: [phone] Physical Therapy Daily Note Diagnosis: S/P ACL reconstruction - allograft Date of Surgery: 08/20/2020 Date of Evaluation: 08/25/20 Date of Treatment: 09/15/20 Treatments to Date: 7 Cancellations to Date: No Shows to Date: Authorized Visits: Insurance End Date: Precautions/ Contraindications:Activity Restrictions or Additional Instructions: brace locked straight with walking and sleeping. may unlock brace when sitting. may remove brace when sitting may full weight bear. crutches at discharge. May progress to single to no crutches as able may change drsg at 72 hours if needed discharge with prescription for analgesic start PT within 5-7 days follow up in office in 10-14 days Subjective: Pt presents to office reporting new onset of L proximal anterior hip pain and R medial knee pain which began about 36 hours ago, with severe pain in the past 24 hours. Pain Score and Location: 10 joint line Objective Flowsheet: Tests & Measures 0 TO 108 degrees Exercises Standing prostretch with brace locked in extension x 5 minutes each side Ambulation assessment with brace unlocked to 30 degrees as pt present to office this way (reports he opened his brace to 30 degrees on his own at home)- opened up brace to 90 as pt now exhibits (+) quad control and good SLR strength; completed Step up to 2 inch, step up and step down w/ 2 inch x 2 sets 10R, step up 4 inch x 2 sets 10R fatigue and soreness reported so reduced to mat therex 4 way SLR (I of brace in clinic today educated to use brace at home at all times) x 3 sets 10R Mini standing wall squat to 45 degrees x 5 sec hold x 5R Completed ambulation with opening brace to 30 degrees in the clinic with good tolerance. Therapist and patient reviewed ways to open brace to 90 flexion in the office for ambulation, stair tasks ambulated 300 ft without use of AD with good response and symmetrical weightbearing. ISometric QS 0, 30, 60 degrees x 2 SETS 10R Ice applied in heel prop extension at end of session x 10 minutes. Reviewed how to lock/unlock knee ext for to unlock and open brace when sitting. Encouraged gentle unlocking of brace when sitting only to improve ROM flexion tolerance and to ease mobility when sitting. Pt demonstrated/verbalized carryover for ensuring knee ext brace is locked for ambulation. Educated to be aware of infection/ skin rash with use of stockinette, avoidance of scratching L LE round. Hooklying isometric hip adduction with knees flexed to 90 x 2 sets 10R. Present without use of crutches, has weaned from tylenol Completed gait training with brace locked -10 open to 90 on flat surface and with 2 inch>4 inch step today. Pt encourage to be cautious on stairs especially with descending L LE. Reviewed sequencing of stairs - ascending with R LE, descending with L LE first, step to gait with use of rail. Pt encouraged to step up with L LE first when able. Pt verbalized lack of ability to descend stairs 8 inch at home- (advised will be working on it in PT in upcoming session- encouraged to descend LLE first at home to reduce strain/risk until we can improve his comfort level in therapy. Phone call placed to [facility] to obtain urgent appt for pt; heel prop knee extension stretch with ice x 10 minutes. Pt presents and appears very anxious re: his symptoms today. Knee extension is full with AAROM. He demonstrates good quad control. Modalities Assessment: Pt presents to office today reporting new onset of L proximal hip pain rated 8-10/10, worse with weight-bearing. Pt has had a previous history of L5/S1 radiculopathy of his L LE but has never reported pain at location of current site. He reports working gently in the yard with use of his brace and was doing very well with his brace being opened up last Monday (90 flex). Questioning fatigue/overuse of hip flexor region since opening his brace, however he denies pain with active hip flexion during exam. He is TTP over psoas and reports sx deep in groin. Due to recent surgery and intensity of patient sx ? benefit in [place] to rule out presence of DVT. Pt is not currently running a fever but did state need to take pain medication when he was previously weaned from use. He reported resting and elevating his leg yesterday with use of ice. As of Monday (09/11/20) his brace was opened 0-90 for ambulation due to good quad control with SLR; educated to lock brace at night for sleep. Therapist phoned [facility] due to concern; spoke to PHAN who spoke to JAMES, who was able to schedule patient an urgent appt with Catrina RAMIREZ today for 12:15pm. PT Plan: Progress Knee ext>flex ROM, strength progressing to CKC as tolerated per protocol. Pt to see [facility] today at 12:15 pm. Short Term Goals: 2 weeks 1. The patient to be able to independently don and doff his brace to help with compliance. 2. The patient to be able to properly demonstrate crutch and stair negotiation to improve safety with stairs. 3. Pt to have full knee extension. 4. Pt to be able to demonstrate proper heel to toe reciprocal gait pattern with use of crutches as needed to help normalize movement. 5. ROM AROM 0to 90 flexion. Penitentiary Goals: 1. The patient to be able to have 5/5 quad strength in left LE for return to functional activity 2. Pt to be able to have full symmetrical knee flexion to return to PLOF 3. Pt to be able to hold squat position for greater than 30 seconds at a time to show improved quad endurance for the patient to return to PLOF and recreational goals. 4. Pt to be able to tolerate lateral movements such as side shuffle to tolerate dynamic movement. 5. AROM L knee 0-130. Electronically signed by: Edie Landry, PT, DPT
--- NOTE | 2020-09-28 09:24 | MHC.PT.OD ---
[facility] [place] Office [place] Office [place] Office [address] Beth Araiza [address] [phone] F: [phone] F: [phone] F: [phone] F: [phone] Physical Therapy Daily Note Diagnosis: S/P ACL reconstruction - allograft Date of Surgery: 08/20/2020 Date of Evaluation: 08/25/20 Date of Treatment: 09/28/20 Treatments to Date: 11 Cancellations to Date: No Shows to Date: Authorized Visits: Insurance End Date: Precautions/ Contraindications:Activity Restrictions or Additional Instructions: brace locked straight with walking and sleeping. may unlock brace when sitting. may remove brace when sitting may full weight bear. crutches at discharge. May progress to single to no crutches as able may change drsg at 72 hours if needed discharge with prescription for analgesic start PT within 5-7 days follow up in office in 10-14 days Subjective: Pt repots has been experiencing ongoing drainage from knee- stated incision came to a head last week (+) yellow, bloody drainage, continues to report it opening up when walking. I still walk one foot at time going down the stairs. Pain Score and Location: 0 L KNEE Objective Flowsheet: Tests & Measures L KNEE KWEE=166 AFTER BIKE AND AROM HEEL SLIDE>115 AFTER AAROM KNEE FLEX WITH STRAP Exercises Upright bike seat #8 for gentle rocking>revolutions x 5 minutes then additional 5 minutes for backward revolutions with gentle stretch reported. Step-ups from 2 inch>4 inch leading with L LE first, then step down from 2 inch> 4inch reviewed 4 way SLR as home program, standing heel raises with brace on for home, standing hip ext/abd with brace on for home B LE. AAROM heel slides x 2 sets 5R with 10 sec hold to 114. Educated and encouraged to increase AAROM heel slides 2x daily x 5-10 reps. Standing mini wall squat to 45 degrees with tyron brace open/unlocked x 3 sets 10R. Hooklying isometric hip adduction with knees flexed to 90 x 2 sets 10R. Present without use of crutches, has weaned from tylenol Completed gait training with brace locked -10 open to 90 on flat surface and with 2 inch>4 inch step today. Pt encourage to be cautious on stairs especially with descending L LE. Reviewed sequencing of stairs - ascending with R LE, descending with L LE first, step to gait with use of rail. Pt encouraged to step up with L LE first when able. Pt verbalized lack of ability to descend stairs 8 inch at home- (advised will be working on it in PT in upcoming session- encouraged to descend LLE first at home to reduce strain/risk until we can improve his comfort level in therapy. REV GOALS FROM PROTOCOL WITH Pt (PER REQUEST) ED RE MM PAIN VS JT PAIN Modalities Pt TO ICE AT HOME Assessment: Pt to see orthopedics tomorrow for follow up. Pt's incision is not yet fully healed, scabbed area grossly 3cm x 4 cm, has reported ongoing drainage which he stated improving from yellow>clearish, we had to apply a large curad bandaid over incision during therapy as it noted to start draining when performing step-ups clear with bloody tinge (was not wearing any form of dressing when arriving at the clinic today). Initiated mini wall squats to 45 degrees educated to lock brace at 40 for self care mini wall squats at home, with awareness for fatigue avoidance of sharp pains. AAROM flexion to 114 degrees today. He exhibits good quad control and was encourage to keep brace unlocked from flexion now for ambulation. PT Plan: Progress ROM and CKC per protocol as tolerated with goal of 120 flexion this week. AAROM ext full. Pt encouraged to discuss concern for incision opening with MD- noted to lilia during therapy session today resulting in therapist covering with standard curad bandaid- pt reported squeezing incision- therapist educated patient to refrain from squeezing and scratching at incision. Educated to ice knee at home and perform heel slides twice daily. Educated to lock brace at 40 degrees flexion if/when attempting mini wall squat for home. Advised to refrain from going deeper than 45 degrees for mini wall squat. Short Term Goals: 2 weeks 1. The patient to be able ascend/descend 6 inch step with tyron brace and use of rail (able to do 4 inch, inconsistently step to at home most of the time). 2. The patient to be able to properly demonstrate crutch and stair negotiation to improve safety with stairs. (MET) 3. Pt to have full knee extension. (AAROM met) 4. Pt to be able to demonstrate proper heel to toe reciprocal gait pattern with use of crutches as needed to help normalize movement. (METDC cructches) 5. ROM AROM 0to 120 flexion. 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 The patient to be able to have 5/5 quad strength in left LE for return to functional activity 2. Pt to be able to have full symmetrical knee flexion to return to PLOF 3. Pt to be able to hold squat position for greater than 30 seconds at a time to show improved quad endurance for the patient to return to PLOF and recreational goals. 4. Pt to be able to tolerate lateral movements such as side shuffle to tolerate dynamic movement 5. AROM L knee 0-130. 6. Reciprocal stair negotiation with good dynamic balance with use of tyron brace. Electronically signed by: Edie Landry, PT, DPT
--- NOTE | 2020-10-22 12:48 | MHC.PT.OD ---
[facility] [place] Office [place] Office [place] Office [address] Beth Araiza [address] [phone] F: [phone] F: [phone] F: [phone] F: [phone] Physical Therapy Daily Note Diagnosis: S/P ACL reconstruction - allograft Date of Surgery: 08/20/2020 Date of Evaluation: 08/25/20 Date of Treatment: 10/22/20 Treatments to Date: 16 Cancellations to Date: No Shows to Date: Authorized Visits: Insurance End Date: Precautions/ Contraindications:Incision not yet healed (+) yellow slough ? concern for infection AAROM 0 to 125 degrees today Presents with [place] brace on today Subjective: Came in at wrong day/time for appt- able to be accommodated. Continues to present with oozying wound open at site of primary ACL incision, (+) yellow slough present. Therapist covered region with curad bandaid at start of session. Pt reports has been draining. Pain Score and Location: 4-5 L KNEE Objective Flowsheet: Tests & Measures AROM ext 0 AAROM flexion 125 degrees Has had [place] brace unlocked for full flexion, -10 ext settings Obtained new [place] brace on Monday, arrived with it broken, therapist called Ortho and spoke to Estrella who aided in patient obtaining new brace. Exercises Upright bike seat #8 with brace removed for level 2.0 x 10 minutes warm-up Bledsode brace on, unlocked fully for flexion: Wobble board weights shifts laterally x 4 minutes, Mini Air squats to 45 degrees (using lock on brace for guidance) with cues to keep weight over heels vs toes, symmetrical weightbearing Hooklying bridge over pball for bridge with brace on x 3 sets 10R; Isometric HS curl with pball x 2 sets 10R with 5 sec hold Review of standing heel raises x 2 sets 10R AAROM flexion with strap x 10R able to achieve 125 degrees flexion. Heel prop knee ext stretch with towel roll with ice x [address] SLR into flexion as component of home HEP, standing heel raises, standing hip abd, standing hip ext to be completed B Therapist has reiterated specific HEP to ensure pt is following protocol recommendations Hooklying isometric hip adduction with knees flexed to 90 x 2 sets 10R. Present without use of crutches, has weaned from tylenol Completed gait training with brace locked -10 open to 90 on flat surface and with 2 inch>4 inch step today. Pt encourage to be cautious on stairs especially with descending L LE. Reviewed sequencing of stairs - ascending with R LE, descending with L LE first, step to gait with use of rail. Pt encouraged to step up with L LE first when able. Pt verbalized lack of ability to descend stairs 8 inch at home- (advised will be working on it in PT in upcoming session- encouraged to descend LLE first at home to reduce strain/risk until we can improve his comfort level in therapy. REV GOALS FROM PROTOCOL WITH Pt (PER REQUEST) ED RE MM PAIN VS JT PAIN Modalities Pt TO ICE AT HOME Assessment: Pt obtained new tyron brace- reports compliance at home, AAROM 0 to 125. SLR control good, continues to report challenge with descending stairs, reports step to pattern most of the time. Weak core, overall deconditioning impacting pt progress- pt fatigues early with therex. Has been encouraged to perform HEP with guidance of specific tasks from therapist however ?compliance due to ongoing early fatigue noted with consistent activities in the office (ie ongoing challenged with 10R mini wall squat/air squats with brace on, inconsistent AAROM knee flexion motion when we discussed importance of doing HEP daily. Reports has been trying to doing stairs more at home, step ups, step-downs. Pt remains OOW, verbalizes concern for specific tasks when RTW modified duty and risk of reinjury. Pt to see Dr. Stark/Caro RAMIREZ tomorrow 10/23/20. PT Plan: Progress per ACL protocol CKC as able. Follow up 10/23/20. Short Term Goals: 2 weeks 1. The patient to be able ascend/descend 6 inch step with tyron brace and use of rail (able to do 4 inch, inconsistently step to at home most of the time). 2. The patient to be able to properly demonstrate crutch and stair negotiation to improve safety with stairs. (MET) 3. Pt to have full knee extension. (AAROM met) 4. Pt to be able to demonstrate proper heel to toe reciprocal gait pattern with use of crutches as needed to help normalize movement. (METDC cructches) 5. ROM AROM 0to 120 flexion. Residential Goals: 1. The patient to be able to have 5/5 quad strength in left LE for return to functional activity 2. Pt to be able to have full symmetrical knee flexion to return to PLOF 3. Pt to be able to hold squat position for greater than 30 seconds at a time to show improved quad endurance for the patient to return to PLOF and recreational goals. 4. Pt to be able to tolerate lateral movements such as side shuffle to tolerate dynamic movement 5. AROM L knee 0-130. 6. Reciprocal stair negotiation with good dynamic balance with use of tyron brace. Electronically signed by: Edie Landry, PT, DPT
--- NOTE | 2020-11-05 09:11 | MHC.PT.OD ---
[facility] [place] Office [place] Office [place] Office [address] Beth Araiza [facility] [phone] F: [phone] F: [phone] F: [phone] F: [phone] Physical Therapy Daily Note Diagnosis: S/P ACL reconstruction - allograft Date of Surgery: 08/20/2020 Date of Evaluation: 08/25/20 Date of Treatment: 11/05/20 Treatments to Date: 17 Cancellations to Date: No Shows to Date: Authorized Visits: Insurance End Date: Precautions/ Contraindications:Irrigation and Drainage: L knee Subjective: Pt had irrigation and drainage of knee on 10/29/20 due to ongoing wound opening .. Pt reported by Monday, active bleeding with saturation, was seen in the office yesterday had gauze changed. Has a follow up on 11/10/20 to have stitches taken out. Was advised to work on gentle motion and isometrics. Pain Score and Location: 2-3 L KNEE Objective Flowsheet: Tests & Measures Office Visit Report Signed Patient: Mp SadlerMR#: [id number] : 1985Acct:[id number] Age/Sex: 34 / MADM Date: 11/04/20 Loc: NELSONDate of Service:11/04/20 Attending Provider: Pattie Grant PA-C cc: Physician,Unknown ~ [address] [place] [address] Office Visit Report Signed Patient: Mp SadlerMR#: [id number] : 1985Acct:[id number] Age/Sex: 34 / MADM Date: 11/04/20 Loc: HO.HOSDate of Service:11/04/20 Attending Provider: Pattie Grant PA-C cc: Physician,Unknown ~ Intake Vital Signs 11/04/20 09:10 Height 6 ft Weight 210 lb BMI 28.5 Intake Visit Reasons: Post OP -s/p L knee ACL Recon 08/20/2020 Intake Note: Mp is a 34 year old male that presents here today for s/p Left knee ACL Recon post-op from 08/20/2020, He states his knee isn't draining anymore, since he has been doing better, he did state that on Monday it filled up with blood, but he cleaned it and changed gauze and since then it has been doing good. He states PT has helped him a lot and today he would like to know if he can start PT again. Allergies No Known Allergies [No Known Allergies*] Allergy (Verified 11/04/20 09:16 HPI Post OP -s/p L knee ACL Recon 08/20/2020 HPI Details 34-year-old who returns to the office today 1 week status post I and D of his left knee. He is status post revision ACL reconstruction with Dr. Stark on 08/20/2020. He developed a suture abscess which continuously drained. He states he has some numbness over the lateral tibia. [facility] Medical History Anxiety Depression Diverticulosis History of diverticulitis Hypertension Ulcerative colitis Surgical History H/O colectomy H/O exploratory laparotomy (~2019) History of appendectomy History of colonoscopy History of incisional hernia repair Social History (Updated 11/04/20 @ 09:17 by SULEMA Wynne) Alcohol intake: never Smoking Status: Never smoker Current occupation: [employer] - Right Handed Review of Systems Const All systems reviewed & are unremarkable except as noted in HPI and below Physical Exam Vital Signs: Body Mass Index 28.5 Extrem Other: Left knee incision clean dry and intact. No erythema or drainage. Light sensation intact to the left garg. Assessment & Plan Assessment & Plan (1) Abscess involving suture: Code(s): T81.41XA - Infection following a procedure, superficial incisional surgical site, initial encounter Plan - Tha-Inez Grant PA-C: Were going to keep the sutures in for another week. He will return at that time to have suture removal. He will continue to use the brace and work with physical therapy on range of motion isometric quad strengthening. He will see us back in 1 week for suture removal. (2) S/P reconstruction of anterior cruciate ligament: Code(s): Z98.890 - Other specified postprocedural states Coding Level of Care Code Global (72750) Diagnoses Abscess involving suture T81.41XA S/P reconstruction of anterior cruciate ligament Z98.890 Documented By:Pattie Grant11/04/20909 Signed By:<Electronically signed by Pattie Grant>11/04/20941 Intake Vital Signs 11/04/20 09:10 Height 6 ft Weight 210 lb BMI 28.5 Intake Visit Reasons: Post OP -s/p L knee ACL Recon 08/20/2020 Intake Note: Mp is a 34 year old male that presents here today for s/p Left knee ACL Recon post-op from 08/20/2020, He states his knee isn't draining anymore, since he has been doing better, he did state that on Monday it filled up with blood, but he cleaned it and changed gauze and since then it has been doing good. He states PT has helped him a lot and today he would like to know if he can start PT again. Allergies No Known Allergies [No Known Allergies*] Allergy (Verified 11/04/20 09:16) HPI Post OP -s/p L knee ACL Recon 08/20/2020 HPI Details 34-year-old who returns to the office today 1 week status post I and D of his left knee. He is status post revision ACL reconstruction with Dr. Stark on 08/20/2020. He developed a suture abscess which continuously drained. He states he has some numbness over the lateral tibia. 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 No erythema or drainage. Light sensation intact to the left garg. Assessment & Plan Assessment & Plan (1) Abscess involving suture: Code(s): T81.41XA - Infection following a procedure, superficial incisional surgical site, initial encounter Plan - Pattie Grant PA-C: Were going to keep the sutures in for another week. He will return at that time to have suture removal. He will continue to use the brace and work with physical therapy on range of motion isometric quad strengthening. He will see us back in 1 week for suture removal. (2) S/P reconstruction of anterior cruciate ligament: Code(s): Z98.890 - Other specified postprocedural states Coding Level of Care Code Global (74847) Diagnoses Abscess involving suture T81.41XA S/P reconstruction of anterior cruciate ligament Z98.890 Documented By:Pattie GrantC011/04/20 0910 Signed By:<Electronically signed by Pattie Grant> Edema measurements: 43.5 cm Supra 43.0 cm Jt line 40.0 cm Infra Site of tibial site: 40.0 cm L ankle: Supra malleoli: 32.0 cm Jt line 28.0 cm 30 cm length AROM -11 to 105 degrees Reports stiffness with end range flexion Exercises Seated on upright bike #7 seat height x gentle rocking x 5 minutes followed by additional five minutes able to make full revolutions with no pain reported (brace removed for this) Isometric quad set with knee in extension x 5 sec hold x 3 sets 10R; Isometric quad set at 30, 60 degrees x 5 sec hold x 10R, Isometric HS set x 5 sec hold x 3 sets 10R. SLR x 2 sets 10R, encouraged gentle painfree ROM, SLR with brace on ext, add, abd x15R. Heel prop for knee extension stretch with ice x 15 post therex. Called [facility] office re: concern for active bleeding spoke with Prisca Grant PA-C at 8:30am. Discussed concern for upcoming appointment next week; she advised to hold until after stitches are removed- will assess response next week. Reviewed what was completed in therapy therapist questions re: isometrics and 4 way SLR for home- was advised ok-.Mp to see Prisca Grant in office today at 9:00am to assess need for further dressing support/change. Hooklying isometric hip adduction with knees flexed to 90 x 2 sets 10R. Present without use of crutches, has weaned from tylenol Completed gait training with brace locked -10 open to 90 on flat surface and with 2 inch>4 inch step today. Pt encourage to be cautious on stairs especially with descending L LE. Reviewed sequencing of stairs - ascending with R LE, descending with L LE first, step to gait with use of rail. Pt encouraged to step up with L LE first when able. Pt verbalized lack of ability to descend stairs 8 inch at home- (advised will be working on it in PT in upcoming session- encouraged to descend LLE first at home to reduce strain/risk until we can improve his comfort level in therapy. REV GOALS FROM PROTOCOL WITH Pt (PER REQUEST) ED RE MM PAIN VS JT PAIN Modalities Pt TO ICE AT HOME Assessment: Pt arrived at therapy today presenting with approximately 1/3 of gauze dressing stained with blood at start of session. Pt reported brace was rubbing along incision region (presented wearing brace lower than appropriate height). Therapist padded out brace with tower over incision region so he could wear brace as per recommended. Pt had no pain with SLR, did not tell therapist he had tugging at site of incision. Upon completion, pt's dressing was stained with active red blood approximately 50% stained through gauze. Heel prop applied with ice. Therapist phoned orthopedic group to inform them of status at time of opening 8:30am- question of patient seeing MD office PT Plan: Phone [facility] office to express concern for active bleeding ? need for secondary/more supportive dressing. Therapist inquired concern for ROM with active bleeding Pt did not report pain with SLR but did state he had pulling with SLR that he did not inform therapist of. Pt advised to pad out brace with toweling to reduce risk of pressure spot of upper tibial strap with tyron brace. Pt to see Prisca Garnt PA-C today. Short Term Goals: 2 weeks 1. The patient to be able ascend/descend 6 inch step with tyron brace and use of rail (able to do 4 inch, inconsistently step to at home most of the time). 2. The patient to be able to properly demonstrate crutch and stair negotiation to improve safety with stairs. (MET) 3. Pt to have full knee extension. (AAROM met) 4. Pt to be able to demonstrate proper heel to toe reciprocal gait pattern with use of crutches as needed to help normalize movement. (METDC cructches) 5. ROM AROM 0to 120 flexion. Hydro Pneumatic Tester Goals: 1. The patient to be able to have 5/5 quad strength in left LE for return to functional activity 2. Pt to be able to have full symmetrical knee flexion to return to PLOF 3. Pt to be able to hold squat position for greater than 30 seconds at a time to show improved quad endurance for the patient to return to PLOF and recreational goals. 4. Pt to be able to tolerate lateral movements such as side shuffle to tolerate dynamic movement 5. AROM L knee 0-130. 6. Reciprocal stair negotiation with good dynamic balance with use of tyron brace. Electronically signed by: Edie Landry, PT, DPT
--- NOTE | 2021-01-05 07:42 | MHC.PT.OD ---
[facility] [place] [facility] [place] Office [place] [facility] [address] Beth Araiza [address] [phone] F: [phone] F: [phone] F: [phone] F: [phone] Physical Therapy Daily Note Diagnosis: S/P ACL reconstruction - allograft Date of Surgery: 08/20/2020 Date of Evaluation: 08/25/20 Date of Treatment: 01/05/21 Treatments to Date: Cancellations to Date: No Shows to Date: Authorized Visits: 25 Insurance End Date: 01/04/21 Precautions/ Contraindications:ACL revision DOS 08/20/20 I&D #1 10/29/20 I&D #2 11/16/20 Insurance auth: 7 visits used 07/16/20-08/27/20; 25 visits used 08/25/20-01/04/21 Subjective: Pt stated he was hit by a shopping cart pushed by a customer while working directly in his surgical leg on 12/28/20 resulting in hyperextension and (+) severe edema which got swollen two times the size of my other leg for a few days. Pt stated he was wearing his brace, now still sore has been taking tylenol due to surge of symptoms. No follow up with Dr. Stark surgeon until January. Pain Score and Location: SORE L KNEE Objective Flowsheet: Tests & Measures AROM 0-132 degrees Supra 43 cm Jt line 41 cm INfra 38 No significant edema observed today when compared to uninvolved extremity Incision fully scarred over. Review of Systems Const All systems reviewed & are unremarkable except as noted in HPI and below Physical Exam Vital Signs: Body Mass Index 29.8 Extrem Other: incision clean dry and intact. Sutures intact. No erythema or joint effusion. Calf supple nontender. Neurovascularly intact. Assessment & Plan Assessment & Plan (1) S/P reconstruction of anterior cruciate ligament: Code(s): Z98.890 - Other specified postprocedural states Plan - Ta-Inez Grant PA-C: Sutures removed. He is going to use a hinge knee brace and we will get him set up with a custom ACL defiance brace. 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 Coding Level of Care Code Global (47794) Diagnoses S/P reconstruction of anterior cruciate ligament Z98.890 Documented By:Pattie Grant11/25/20 1134 Signed By:<Electronically signed by Pattie Grant>11/25/20 1220 Dictated By:Imani Stark MD Signed By:<Electronically signed by Imani Stark MD>11/17/20 1430 Office Visit Report Signed Patient: Mp SadlerMR#: [id number] : 1985Acct:[id number] Age/Sex: 34 / MADM Date: 11/04/20 Loc: NELSON[place]ristiana of Service:11/04/20 Attending Provider: Pattie Grant PA-C cc: Physician,Unknown ~ [address] [place] [address] Office Visit Report Signed Patient: Mp SadlerMR#: [id number] : 1985Acct:[id number] Age/Sex: 34 / MADM Date: 11/04/20 Loc: HO.HOSDate of Service:11/04/20 Attending Provider: Pattie Grant PA-C cc: Physician,Unknown ~ Intake Vital Signs 11/04/20 09:10 Height 6 ft Weight 210 lb BMI 28.5 Intake Visit Reasons: Post OP -s/p L knee ACL Recon 08/20/2020 Intake Note: Mp is a 34 year old male that presents here today for s/p Left knee ACL Recon post-op from 08/20/2020, He states his knee isn't draining anymore, since he has been doing better, he did state that on Monday it filled up with blood, but he cleaned it and changed gauze and since then it has been doing good. He states PT has helped him a lot and today he would like to know if he can start PT again. Allergies No Known Allergies [No Known Allergies*] Allergy (Verified 11/04/20 09:16 HPI Post OP -s/p L knee ACL Recon 08/20/2020 HPI Details 34-year-old who returns to the office today 1 week status post I and D of his left knee. He is status post revision ACL reconstruction with Dr. Stark on 08/20/2020. He developed a suture abscess which continuously drained. He states he has some numbness over the lateral tibia. 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 No erythema or drainage. Light sensation intact to the left garg. Assessment & Plan Assessment & Plan (1) Abscess involving suture: Code(s): T81.41XA - Infection following a procedure, superficial incisional surgical site, initial encounter Plan - Pattie Grant PA-C: Were going to keep the sutures in for another week. He will return at that time to have suture removal. He will continue to use the brace and work with physical therapy on range of motion isometric quad strengthening. He will see us back in 1 week for suture removal. (2) S/P reconstruction of anterior cruciate ligament: Code(s): Z98.890 - Other specified postprocedural states Coding Level of Care Code Global (98579) Diagnoses Abscess involving suture T81.41XA S/P reconstruction of anterior cruciate ligament Z98.890 Documented By:Pattie Grant11/04/20909 Signed By:<Electronically signed by Pattie Grant>11/04/20 0942 Intake Vital Signs 11/04/20 09:10 Height 6 ft Weight 210 lb BMI 28.5 Intake Visit Reasons: Post OP -s/p L knee ACL Recon 08/20/2020 Intake Note: Mp is a 34 year old male that presents here today for s/p Left knee ACL Recon post-op from 08/20/2020, He states his knee isn't draining anymore, since he has been doing better, he did state that on Monday it filled up with blood, but he cleaned it and changed gauze and since then it has been doing good. He states PT has helped him a lot and today he would like to know if he can start PT again. Allergies No Known Allergies [No Known Allergies*] Allergy (Verified 11/04/20 09:16) HPI Post OP -s/p L knee ACL Recon 08/20/2020 HPI Details 34-year-old who returns to the office today 1 week status post I and D of his left knee. He is status post revision ACL reconstruction with Dr. Stark on 08/20/2020. He developed a suture abscess which continuously drained. He states he has some numbness over the lateral tibia. 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 No erythema or drainage. Light sensation intact to the left garg. Assessment & Plan Assessment & Plan (1) Abscess involving suture: Code(s): T81.41XA - Infection following a procedure, superficial incisional surgical site, initial encounter Plan - Tah-Inez Grant PA-C: Were going to keep the sutures in for another week. He will return at that time to have suture removal. He will continue to use the brace and work with physical therapy on range of motion isometric quad strengthening. He will see us back in 1 week for suture removal. (2) S/P reconstruction of anterior cruciate ligament: Code(s): Z98.890 - Other specified postprocedural states Coding Level of Care Code Global (85838) Diagnoses Abscess involving suture T81.41XA S/P reconstruction of anterior cruciate ligament Z98.890 Documented By:Pattie Grant11/04/20 0910 Signed By:<Electronically signed by Pattie Grant> Edema measurements: 43.5 cm Supra 43.0 cm Jt line 40.0 cm Infra Site of tibial site: 40.0 cm L ankle: Supra malleoli: 32.0 cm Jt line 28.0 cm 30 cm length AROM -11 to 105 degrees Reports stiffness with end range flexion Exercises Seated on upright bike with brace off level 3.5 x 10. Review of HEP program to date: Standing mini wall squats with kahlil meredith brace on with black theraband around mid thigh x 2 sets 10R with 5 sec hold with cues/review of proper mechanics with squat technique, Standing toe taps/weight shifts flex/abd/ext (also reviewed he can complete this activity in the pool setting. Focused on exercises today that he can complete at home to review. Physioball bridge encouraged brace on at home (lying on mat with feet on ball x 2 sets 10R), HS curl with feet on physioball x 2 sets 10R, HS/bridge curl combo (advised to wear brace) x 2 sets 10R; prone hip ext lying over pball with use of brace x 2 sets 10R, UE raises x 2 sets 10R, UE/LE combo with goal of 3 sec hold x 2 sets 10R. Fatigue verbalized with physical quiver of quadriceps witnessed during standing toe taps. Reviewed step ups, step downs, and activities to complete within home environment. MARCIN brace on: BAPS board level 3 DF/PF/IV/EV x 3 minutes each direction, SLS L FOR 4 WAY RESISTED ARMS WITH GREEN TB X 10 R EA DIRECTION, STEP UPS ON 6 INCH STEP LEADING WITH L X 10 R Hooklying isometric hip adduction with knees flexed to 90 x 2 sets 10R. Prone for STM/IASTM to medial HS insertion with HG #8 strumming response, followed by two strips to medial HS education re: application/removal/indications for use Present without use of crutches, has weaned from tylenol Completed gait training with brace locked -10 open to 90 on flat surface and with 2 inch>4 inch step today. Pt encourage to be cautious on stairs especially with descending L LE. Reviewed sequencing of stairs - ascending with R LE, descending with L LE first, step to gait with use of rail. Pt encouraged to step up with L LE first when able. Pt verbalized lack of ability to descend stairs 8 inch at home- (advised will be working on it in PT in upcoming session- encouraged to descend LLE first at home to reduce strain/risk until we can improve his comfort level in therapy. REV GOALS FROM PROTOCOL WITH Pt (PER REQUEST) ED RE MM PAIN VS JT PAIN Modalities Ice for L knee while in extension stretch with bolster stretch x 10 minutes post therex. Assessment: Pt is s/p ACL revision DOS 08/20/20, I&D #1 10/29/20 and I&D #2 11/16/20. He has attended 25 visits of PT at this time. Today he exhibited AROM 0 to 132 degrees. He continues to be challenged with low> moderate level activities and was encouraged to continue with strengthening program at home consistently. 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 He continues to be challenged with dynamic stabilization activities, advised to wear brace for these tasks. Post surgical irrigation and drainages in the OR, he required several rounds antibiotics with a delayed healing of incision. He also developing URI which impacted his attendance/progression in therapy. 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 He was encouraged to make a follow up with surgeon to discuss renewal for an updated script in order to obtain additional PT auth. Pt continues to be unable to run, jump, or complete dynamic tasks without significant fatigue in his leg. PT Plan: Recommending follow up with surgeon due to episode of being hit by a shopping cart. Therapist also recommending continued therapy strengthening, prep for agility (would benefit from updated script to obtain additional PT auth ...pt to possibly transfer to alternate office which offers jump>run program). Pt to discuss progress/status with surgeon. AROM L knee 0-135. Challenged and dyspnea with therex today requiring rest periods secondary to respiratory fatigue. Issued updated HEP program and education re: safety of wearing brace for dynamic activities. Short Term Goals: 2 weeks 1. The patient to be able ascend/descend 6 inch step with tyron brace and use of rail (able to do 4 inch, inconsistently step to at home most of the time). 2. The patient to be able to properly demonstrate crutch and stair negotiation to improve safety with stairs. (MET) 3. Pt to have full knee extension. (AAROM met) 4. Pt to be able to demonstrate proper heel to toe reciprocal gait pattern with use of crutches as needed to help normalize movement. (METDC cructches) 5. ROM AROM 0to 120 flexion. Supervisor Special Services Goals: 1. The patient to be able to have 5/5 quad strength in left LE for return to functional activity 2. Pt to be able to have full symmetrical knee flexion to return to PLOF 3. Pt to be able to hold squat position for greater than 30 seconds at a time to show improved quad endurance for the patient to return to PLOF and recreational goals. 4. Pt to be able to tolerate lateral movements such as side shuffle to tolerate dynamic movement 5. AROM L knee 0-130. 6. Reciprocal stair negotiation with good dynamic balance with use of tyron brace. Electronically signed by: Edie Landry, PT ,DPT
== END 2021-05-07 14:28 | disposition home or self-care (01) ==
LOC: HO.PTWFD 13:00
PROVIDERS: Visit Provider Physician Assistant
DX: Z98.890 Other specified postprocedural states (principal)
CPT/HCPCS: 97110; 97116; 97140; 97162; 97164; 97530; 97535

== ENCOUNTER → 2021-01-05 10:37 | Outpatient (BNVA) | payer OTHER, SELFPAY | PROVIDERS: Visit Provider Orthopaedic Surgery ==

== ENCOUNTER → 2021-02-10 09:26 | Outpatient (BNVA) | payer OTHER, SELFPAY | PROVIDERS: PCP Internal Medicine; Visit Provider Orthopaedic Surgery ==

== ENCOUNTER → 2021-03-16 09:43 | Outpatient (BNVA) | payer OTHER, SELFPAY | PROVIDERS: Visit Provider Physician Assistant ==

== ENCOUNTER → 2021-05-06 13:07 | Outpatient (BNVA) | payer OTHER, SELFPAY | PROVIDERS: Visit Provider Physician Assistant ==

== ENCOUNTER 2021-06-01 14:00 | Outpatient (RCR) | payer OTHER, SELFPAY ==
--- NOTE | 2021-01-18 08:53 | MHC.PT.EP ---
[facility] [place] Office [place] Office [place] Office [address] Beth Araiza [address] [phone] F: [phone] F: [phone] F: [phone] F: [phone] Physical Therapy Plan of Care Date of Evaluation: Date of Surgery: 08/20/20 Diagnosis: ACL recontruction rehab > jump program. Assessment: Patient is a 35 year old R handed male who presents with s/s consistent with s/p ACL recon on 08/20/20. He had two I&Ds afterwards due to delays in healing at surgical site. Most recent was 11/16/20. 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 He works with daily job demands including standing, lifting, walking. Patient past medical history includes colectomy, hernia, ACL recon 2 years ago. Current impairments include pain, ROM, strength, safety, independence, activity tolerance and functional mobility. Functional limitations include decreased ability to walk, stand, transfer, squat, run, snowboard, play volleyball, negotiate stairs, and perform weight bearing activities.. Patient is motivated with good rehab potential. Skilled PT will address impairments and functional limitations in order to achieve goals. Frequency and Duration: The patient will be seen 3x/week for 8 weeks Short Term Goals: I with HEP - 2 weeks Improve HS flex to 30 degree lag or less - 3 weeks Able to single leg drop down off 10 with good control - 4 weeks HR full excursion x20 in 1 minutes - 4 weeks Tap downs with no HH assist 10x in 60 seconds. - 4 weeks Data Assistant Goals: Initiate jogging - 8 weeks Triple jump 75% - 8 weeks forward/backward hop, lateral hops 80% in 8 weeks Treatment Plan: Modalities to reduce pain, spasms and effusion. Manual therapy to restore motion and function. Therapeutic exercise to improve strength and flexibility. Neuromuscular re-education for posture and balance. Therapeutic activities to return to functional activities of daily living. Electronically signed by: Pepito Torres, PT Please sign and return to therapist. Thank you for your referral.
--- NOTE | 2021-07-16 07:32 | MHC.PT.DC ---
[facility] [place] Office [place] Office [address] Beth Araiaz [address] [phone] F: [phone] F: [phone] F: [phone] F: [phone] Physical Therapy Discharge Report Diagnosis: ACL recontruction rehab > jump program. Date of Surgery: 08/20/20 Date of Evaluation: 01/18/21 Date of Discharge: 06/16/21 Treatments to Date: 23 Cancellations to Date: 0 No Shows to Date: 0 Discharge Status: Recommend MD Follow-up Discharge Summary: Pt is pursuing another opinion and further imaging due to new s/s. We will hold skilled PT at this time to pursue optimal treatment. Electronically signed by: Pepito Torres, PT Please sign and return to therapist. Thank you for your referral.
== END 2021-06-16 08:00 | disposition home or self-care (01) ==
LOC: HO.PTCHIC 14:00
PROVIDERS: PCP Internal Medicine; Visit Provider Orthopaedic Surgery
DX: Z98.890 Other specified postprocedural states (principal)
CPT/HCPCS: 97110; 97140; 97162; 97530

== ENCOUNTER 2021-07-20 07:21 | Outpatient (REF) | payer OTHER, SELFPAY ==
--- NOTE | ~2021-07-20 | XR_ITS ---
EXAMINATION: XR KNEE, LEFT CLINICAL INFORMATION: Pain COMPARISON: None TECHNIQUE: Three views of the left knee. FINDINGS: There is evidence of an old ACL repair. Bone alignment is normal. No fracture or dislocation is seen. There are mild degenerative changes at the medial femoral tibial and patellofemoral joints. There is a small joint effusion. XR/XR knee LT 3V IMPRESSION: Evidence of previous ACL repair. Mild degenerative changes.
== END 2021-07-20 07:22 | disposition home or self-care (01) ==
LOC: HO.HOSX 07:21
PROVIDERS: Visit Provider Physician Assistant
DX: M25.362 Other instability, left knee (principal); S83.207A Unspecified tear of unspecified meniscus, current injury, left knee, initial encounter; S83.512A Sprain of anterior cruciate ligament of left knee, initial encounter; Z98.890 Other specified postprocedural states
CPT/HCPCS: 73562

== ENCOUNTER 2021-08-11 18:00 | Outpatient (REF) | payer OTHER, SELFPAY ==
--- NOTE | ~2021-08-11 | MR_ITS ---
EXAMINATION: MR KNEE WITHOUT CONTRAST, LEFT CLINICAL INFORMATION: Left knee pain and swelling. Instability. Anterior cruciate ligament and meniscal surgery in 2019. COMPARISON: Left knee radiographs dated 07/20/2021. Left knee MRI dated 07/21/2020. TECHNIQUE: MRI of the knee without contrast was performed using routine sequences on a high-field scanner. FINDINGS: MENISCI: Medial Meniscus: Persistent abnormal signal through the periphery of the meniscal body tibial articular surface as well as the inner third of the posterior horn/root tibial articular surface, decreased when compared to the prior examination. Findings may represent a persistent nondisplaced tear versus sequela of interval meniscectomy. No new meniscal tear. Lateral Meniscus: Intact. LIGAMENTS: Cruciate: There is new, extensive postsurgical change consistent with interval anterior cruciate ligament reconstruction. This significantly limits evaluation as the ligament graft is largely obscured by artifact. The posterior cruciate ligament is grossly intact. Collateral: Intact. EXTENSOR MECHANISM: Intact. ARTICULAR CARTILAGE/BONE: Patellofemoral Compartment: Inferior patellar median ridge articular cartilage signal heterogeneity and delamination measuring up to 1.6 cm in ML dimension and extending to the medial patellar facet. Medial trochlear articular cartilage signal heterogeneity and surface regularly. Tiny marginal osteophytes. Findings are slightly progressed when compared to the prior examination. Medial Compartment: Medial weightbearing femoral condyle articular cartilage signal heterogeneity. Marginal osteophytes. Findings are slightly progressed. Lateral Compartment: Mild articular cartilage signal heterogeneity with tiny marginal osteophytes, unchanged. JOINT FLUID AND BURSAE: Small joint effusion. MR/MR knee LT wo con IMPRESSION: 1. Postsurgical change consistent with a second anterior cruciate ligament graft reconstruction. There is extensive metallic artifact which largely obscures the graft which is not well seen. Intact posterior cruciate ligament. 2. Persistent abnormal signal within the periphery of the meniscal body tibial articular surface as well as the inner third of the posterior horn/root, decreased when compared to the prior examination. Findings likely represent the sequela of interval meniscectomy. No new meniscal tear. 3. Mild patellofemoral and medial compartment osteoarthritis, slightly progressed. Stable mild lateral compartment osteoarthritis. Small joint effusion.
== END 2021-08-11 18:01 | disposition home or self-care (01) ==
LOC: HO.MRI 18:00
PROVIDERS: Visit Provider Physician Assistant
DX: S83.207A Unspecified tear of unspecified meniscus, current injury, left knee, initial encounter (principal); S83.512A Sprain of anterior cruciate ligament of left knee, initial encounter; M25.362 Other instability, left knee
CPT/HCPCS: 73721

== ENCOUNTER → 2021-09-02 09:30 | Outpatient (BNVA) | payer OTHER, SELFPAY | PROVIDERS: Visit Provider Physician Assistant ==

== ENCOUNTER 2021-09-28 08:40 | Day surgery (SDC) | payer OTHER, SELFPAY ==
[2021-09-23 09:24] VITALS: BMI 32.5
--- NOTE | 2021-09-27 09:26 | HO.ANESPROP2 ---
Documented by User: Eli Goel NP 09/27/21 09:27 HPI - Anesthesia Eval Consult details Narrative: 35yo M for Left Knee Arthroscopy s/p L Knee I&D 10/2020 s/p L knee I&D 10/29/20 with GA-LMA 5 s/p L ACL repair with GA 07/2020 Chronic opioids PMFSH Active Problems Active Problems: All Active Problems (Updated 09/02/21 @ 10:22 by Catrina Elizondo PA-C) Tear of meniscus of left knee (Acute) Tears of meniscus and ACL of left knee (Acute) S/P ACL reconstruction (Acute) S/P reconstruction of anterior cruciate ligament (Acute) Abscess involving suture (Acute) Knee instability (Acute) Tear of medial meniscus of left knee (Acute) Past Medical History Medical History Anxiety Depression Diverticulosis History of diverticulitis Hypertension Ulcerative colitis Family History Family history of problems with anesthesia: No Surgical History Surgical History H/O colectomy H/O exploratory laparotomy (~2019) History of appendectomy History of colonoscopy History of incision and drainage History of incisional hernia repair Hx of anterior cruciate ligament surgery History of Problems with Anesthesia: No Social History Social History Alcohol intake: never Patient Tobacco Use Status: Never used Tobacco Use of substances other than those prescribed or required for medical reasons: Yes Substance Use Frequency: Occasionally Are you DNR?: No Advance Directives: No Advance Directives Information Provided: Yes Current occupation: [employer] - Right Handed Meds Allergies Allergy/AdvReac Type Severity Reaction Status Date / Time No Known Allergies Allergy Verified 09/28/21 08:49 [No Known Allergies*] Home Medications Medication Instructions Recorded Confirmed Last Taken Type citalopram 10 mg tablet 5 mg PO DAILY 07/13/20 08/20/20 08/20/20 History 0515 mesalamine 400 mg capsule (with 1,200 mg PO DAILY 07/13/20 08/05/20 Unknown History delayed release tablets inside) hydroxyzine HCl 50 mg tablet 50 mg PO TID 11/20/20 Unknown History lisinopril 20 mg tablet 20 mg PO DAILY 11/20/20 Unknown History Exam Exam Date and Time: September 27, 2021 0926 Height,Weight and Vital Signs: Height 6 ft Weight 108.862 kg Assessment and Plan Assessment Anesthesia Assessment: Chart Reviewed Final Anesthetic Review Family History of Problems with Anesthesia: No History of Problems with Anesthesia: No Documented by User: Arie Dalton MD 09/28/21 10:26 [facility] Past Medical History Medical History Anxiety Depression Diverticulosis History of diverticulitis Hypertension Ulcerative colitis Surgical History Surgical History H/O colectomy H/O exploratory laparotomy (~2019) History of appendectomy History of colonoscopy History of incision and drainage History of incisional hernia repair Hx of anterior cruciate ligament surgery Social History Social History Alcohol intake: never Patient Tobacco Use Status: Never used Tobacco Use of substances other than those prescribed or required for medical reasons: Yes Substance Use Frequency: Occasionally Are you DNR?: No Advance Directives: No Advance Directives Information Provided: Yes 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 Allergies Allergy/AdvReac Type Severity Reaction Status Date / Time No Known Allergies Allergy Verified 09/28/21 08:49 [No Known Allergies*] Home Medications Medication Instructions Recorded Confirmed Last Taken Type citalopram 10 mg tablet 5 mg PO DAILY 07/13/20 08/20/20 08/20/20 History 514 mesalamine 400 mg capsule (with 1,200 mg PO DAILY 07/13/20 08/05/20 Unknown History delayed release tablets inside) hydroxyzine HCl 50 mg tablet 50 mg PO TID 11/20/20 Unknown History lisinopril 20 mg tablet 20 mg PO DAILY 11/20/20 Unknown History Exam Airway Mallampati Class: I TM Dist: >3cm Neck ROM: Full Loose/Missing/Broken Teeth: No Assessment and Plan Assessment Anesthesia Assessment: Anesthesia Plan Discussed Final Anesthetic Review NPO: Yes ASA Class: I Final Preanesthetic Review: No Changes in Pt Med Stat, Meds/Allgs Chart Reviewed, Consent Obtained/Reviewed and Anes Risks/Benef Reviewed Patient Risk: Low Procedure Risk: Low Anesthetic Plan Anesthetic Plan: GA Disposition: Standard PACU
[2021-09-28] VITALS (8 sets, daily range): BP systolic 132–147; BP diastolic 81–97; PULSE 74–90; RESP 16–18; TEMP 36.3–36.8; O2SAT 96–100
[2021-09-28] MEDS: Lactated Ringers 1,000 ML 100 ML IVCONT (09:05)
[2021-09-28] MEDS: Acetaminophen 325 MG TABLET 650 MG PO (15:10)
[2021-09-28] MEDS: oxyCODONE HCl Immed Release 5 MG TABLET 10 MG PO (15:11)
[2021-09-28] MEDS: fentaNYL citrate/PF 100 MCG/2 ML VIAL 25 MCG IVPUSH ×4 (15:13→15:31)
--- NOTE | 2021-09-28 16:40 | P.BOP_ITS ---
Brief Operative Note Date of Service: 09/28/21 Pre-op diagnosis: right knee medial meniscus tear Post-op diagnosis: other (Bucket handle medial meniscus tear; ACL graft tear) Procedure: Partial medial meniscectomy left knee Surgeon: David Bucio MD Anesthesia: GETA and local Was an Continuous Wave Operator used for this Procedure?: No Estimated blood loss (mL): 5 Tourniquet time (min): 17 IV fluids (mL): 600 Pathology: none sent Condition: stable Disposition: PACU
--- NOTE | 2021-10-05 13:34 | W.PM.OPN ---
Operative Note Operative Note Date of Service: 10/05/21 Narrative: Date of Service: 09/28/21 Pre-op diagnosis: right knee medial meniscus tear Post-op diagnosis: other (Bucket handle medial meniscus tear; ACL graft tear) Procedure: Partial medial meniscectomy left knee Surgeon: David Bucio MD Anesthesia: GETA and local Was an Watch And Clock Maker And Repairer used for this Procedure?: No Estimated blood loss (mL): 5 Tourniquet time (min): 17 IV fluids (mL): 600 Pathology: none sent Condition: stable Disposition: PACU Procedure in detail: Patient was brought to the operating room placed supine on the arthroscopic table and prepped and draped in standard sterile fashion. A time-out was called to identify proper site proper procedure proper surgeon and IV antibiotics per weight were administered. I began by exsanguinating the limb and insufflating tourniquet to 300 mm Hg. Then made a standard anterolateral stab incision. The knee was insufflated with water and 30 degree arthroscope was placed. There was grade 1 fibrillations of the patella but overall suprapatellar pouch was clean and the gutters were clean. I descended into the medial compartment where I made my medial portal under direct visualization. There was no obvious tear of the body or the posterior horn of the medial meniscus. I placed a probe and there was a bucket handle meniscus tear approximately 50 % of the posterior horn remaining. I used a shaver to remove the flap. The root was intact and there were scattered grade 1 changes in the medial compartment. Once I was satisfied with this the ACL was examined. It was essentially absent with some distal fibers remaining but patulous and dysfunctional. This was debrided with a shaver. The lateral compartment was normal. I then removed all instrumentation and closed the portals with skin glue. 25 mL of 2% Marcaine with epinephrine was injected into the joint and the surrounding soft tissues. Patient was then placed in sterile dressing extubated brought recovery room stable condition. There were no known complications.
== END 2021-09-28 16:22 | disposition home or self-care (01) ==
LOC: HO.SSS 08:41
PROVIDERS: Visit Provider Orthopaedic Surgery
PROC: (CPT 29870; principal; 2021-09-28 10:10)
DX: S83.212A Bucket-handle tear of medial meniscus, current injury, left knee, initial encounter (principal); M23.52 Chronic instability of knee, left knee; Z98.890 Other specified postprocedural states; W19.XXXA Unspecified fall, initial encounter; Y93.9 Activity, unspecified; Y92.9 Unspecified place or not applicable; Y99.8 Other external cause status; I10 Essential (primary) hypertension; F32.9 Major depressive disorder, single episode, unspecified; Z79.899 Other long term (current) drug therapy
CPT/HCPCS: 29881; J0171; J0690; J1100; J1885; J2250; J2405; J3010

== ENCOUNTER → 2021-10-07 13:47 | Outpatient (BNVA) | payer OTHER, SELFPAY | PROVIDERS: Visit Provider Physician Assistant | DX: Z13.89 Encounter for screening for other disorder (principal) ==

== ENCOUNTER → 2021-10-22 10:26 | Outpatient (BNVA) | payer OTHER, SELFPAY | PROVIDERS: Visit Provider Physician Assistant | DX: Z13.89 Encounter for screening for other disorder (principal) ==

== ENCOUNTER 2021-11-26 09:00 | Outpatient (RCR) | payer OTHER, SELFPAY ==
--- NOTE | 2021-10-07 15:38 | MHC.PT.EP ---
[facility] [place] Office [place] Office [place] Office [address] Beth Araiza [address] [phone] F: [phone] F: [phone] F: [phone] F: [phone] Physical Therapy Plan of Care Date of Evaluation: Date of Surgery: 09/28/21 Diagnosis: L knee debridement on 09/28 (protocol in chart) Assessment: pt presents to this physical therapy evaluation in the orthopedic office s/p L knee on 09/28/21. pt presents to physical therapy with pain, decreased range of motion, decreased strength, impaired functional mobility, impaired postural awareness, and gait deviations. pt is a good candidate for skilled PT due to age, potential remediation of impairments, typical disease/condition progression and prognosis, comorbidities, and motivation. pt would benefit from tailored strengthening and stretching exercise program, functional training, gait training, postural re-training, neuromuscular re-education, modalities as needed for pain, equipment safety demonstration. Frequency and Duration: The patient will be seen 2x/wk for 12 wks Short Term Goals: pt will be I w/ HEP to promote self-management of condition. pt will improve L knee extension to greater than lacking 10 degrees to promote improved heel strike w/ gait on even ground. pt will demo proper ascend/descend pattern (up w/ good leg, down w/ bad leg) using railing x3 stairs to promote surgical healing while entering home. Church Administrator Goals: pt will report a statistically significant improvement in self-reported outcome measure, LEFI, to promote return to PLOF. pt will improve L quad strength to at least 4/5 to promote ease in sit to stand transfers. pt will ambulate at least 1200' w/ LRAD on even ground to promote ease in community ambulation for grocery shopping. Treatment Plan: Modalities to reduce pain, spasms and effusion. Manual therapy to restore motion and function. Therapeutic exercise to improve strength and flexibility. Neuromuscular re-education for posture and balance. Therapeutic activities to return to functional activities of daily living. Electronically signed by: Dilcia Maya PT, DPT Please sign and return to therapist. Thank you for your referral.
--- NOTE | 2022-03-17 10:20 | MHC.PT.DC ---
[facility] [place] Office [place] Office [place] Office [address] Bteh Araiza [address] [phone] F: [phone] F: [phone] F: [phone] F: [phone] Physical Therapy Discharge Report Diagnosis: L knee debridement on 09/28 (protocol in chart) Date of Surgery: 09/28/21 Date of Evaluation: 10/07/21 Date of Discharge: 12/17/21 Treatments to Date: 8 Cancellations to Date: 0 No Shows to Date: 0 Discharge Status: Improved Function Independent with HEP Discharge Summary: 6.3: Pt reports good ilana for todays challenges, able to ilana 8 step ups w/o pain; reports ortho consult next monday. 11/19/21: pt progressed with hip strength and stairs. continue to progress as tolerated with strength. 11/16/21: pt progressing well overall. good performance with step up and over. improved control but still with some quad weakness suggesting not ready for 6 step down 11/11/21: pt progressing well. added resistance to shuttle and step down with 4 . pain free today. assess response. increasing time on feet at work. 11/09/21: pt progressing well with skilled PT. he still has strength deficits that limit his daily function with some crepitus. he is returning to work today and we will assess his response to workday upon return. 11/05: Reported some soreness though not bad to start. Pt reports crepitis and weakness on 4 step though reports improved comfort with repetitions. reports bought ankle weights for HEP. Good ilana for activities; IP to end session x 7 min un-timed. 11/02/21: pt did miss last week due to a in the family. we did progress him today with SLR 1#, shuttle, and upright bike. no adverse reactions. we will assess response and progress as tolerated. 10/22/21: pt progressing well. muscular soreness noted. some swelling is still present and we have been managing this with CP. follow up today to talk possible surgery. 10/19/21: educated significantly on pacing rehab. pt wants to bike but i educated him on systematic/methodical progression as well as managing swelling. 10/15/21: pt progressing well and per protocol for ROM. given updated HEP which we will progress NV with rec bike and standing activities. pt presents to this physical therapy evaluation in the orthopedic office s/p L knee on 09/28/21. pt presents to physical therapy with pain, decreased range of motion, decreased strength, impaired functional mobility, impaired postural awareness, and gait deviations. pt is a good candidate for skilled PT due to age, potential remediation of impairments, typical disease/condition progression and prognosis, comorbidities, and motivation. pt would benefit from tailored strengthening and stretching exercise program, functional training, gait training, postural re-training, neuromuscular re-education, modalities as needed for pain, equipment safety demonstration. Electronically signed by: Pepito Torres PT Please sign and return to therapist. Thank you for your referral.
== END 2022-03-17 10:20 | disposition home or self-care (01) ==
LOC: HO.PTCHIC 09:00
PROVIDERS: Visit Provider Physician Assistant
DX: Z98.890 Other specified postprocedural states (principal)
CPT/HCPCS: 97110; 97162; 97530

== ENCOUNTER → 2021-11-30 09:37 | Outpatient (BNVA) | payer OTHER, SELFPAY | PROVIDERS: Visit Provider Physician Assistant | DX: Z98.890 Other specified postprocedural states (principal); S83.242A Other tear of medial meniscus, current injury, left knee, initial encounter ==

== ENCOUNTER 2021-12-22 06:04 | Day surgery (SDC) | payer OTHER, SELFPAY ==
[2021-12-16 11:26] VITALS: BMI 33.9
--- NOTE | 2021-12-21 09:55 | P.CONAN_ITS ---
Documented by User: Eli Goel NP 12/21/21 09:57 HPI - Anesthesia Eval Consult details Narrative: 36yo M for Left ACL Repair Arthroscopic Revision s/p knee arthroscopy 09/2021 with GA-LMA 5 PMFSH Active Problems Active Problems: All Active Problems (Updated 09/02/21 @ 10:22 by Catrina Elizondo PA-C) Tear of meniscus of left knee (Acute) Tears of meniscus and ACL of left knee (Acute) S/P ACL reconstruction (Acute) S/P reconstruction of anterior cruciate ligament (Acute) Abscess involving suture (Acute) Knee instability (Acute) Tear of medial meniscus of left knee (Acute) Past Medical History Medical History Anxiety Depression Diverticulosis History of diverticulitis Hypertension Ulcerative colitis Family History Family history of problems with anesthesia: No Surgical History Surgical History H/O colectomy H/O exploratory laparotomy (~2019) History of appendectomy History of colonoscopy History of incision and drainage History of incisional hernia repair Hx of anterior cruciate ligament surgery History of Problems with Anesthesia: No Social History Social History Alcohol intake: never Patient Tobacco Use Status: Never used Tobacco Current occupation: [employer] - Right [employer]ed [employer] Allergies Allergy/AdvReac Type Severity Reaction Status Date / Time No Known Allergies Allergy Verified 10/07/21 14:06 [No Known Allergies*] Home Medications Medication Instructions Recorded Confirmed Last Taken Type citalopram 10 mg tablet 5 mg PO DAILY 07/13/20 12/22/21 08/20/20 History 0515 mesalamine 400 mg capsule (with 1,200 mg PO DAILY 07/13/20 12/22/21 Unknown History delayed release tablets inside) hydroxyzine HCl 50 mg tablet 50 mg PO TID 11/20/20 12/22/21 Unknown History lisinopril 20 mg tablet 20 mg PO DAILY 11/20/20 12/22/21 12/22/21 History Exam Exam Date and Time: December 21, 2021 0955 Height,Weight and Vital Signs: Height 6 ft Weight 113.398 kg Assessment and Plan Assessment Anesthesia Assessment: Chart Reviewed Final Anesthetic Review Family History of Problems with Anesthesia: No History of Problems with Anesthesia: No Documented by User: Gerardo Cardenas MD 12/22/21 18:51 PMFSH Past Medical History Medical History Anxiety Depression Diverticulosis History of diverticulitis Hypertension Ulcerative colitis Surgical History Surgical History H/O colectomy H/O exploratory laparotomy (~2019) History of appendectomy History of colonoscopy History of incision and drainage History of incisional hernia repair Hx of anterior cruciate ligament surgery Social History Social History Alcohol intake: never Patient Tobacco Use Status: Never used Tobacco 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 Allergies Allergy/AdvReac Type Severity Reaction Status Date / Time No Known Allergies Allergy Verified 10/07/21 14:06 [No Known Allergies*] Home Medications Medication Instructions Recorded Confirmed Last Taken Type citalopram 10 mg tablet 5 mg PO DAILY 07/13/20 12/22/21 08/20/20 History 0515 mesalamine 400 mg capsule (with 1,200 mg PO DAILY 07/13/20 12/22/21 Unknown History delayed release tablets inside) hydroxyzine HCl 50 mg tablet 50 mg PO TID 11/20/20 12/22/21 Unknown History lisinopril 20 mg tablet 20 mg PO DAILY 11/20/20 12/22/21 12/22/21 History Exam Airway Mallampati Class: III TM Dist: >3cm Neck ROM: Full Loose/Missing/Broken Teeth: Yes (Upper teeth chipped ) Heart: S1,S2 Lungs: b/l breath sounds Assessment and Plan Assessment Anesthesia Assessment: Anesthesia Plan Discussed Final Anesthetic Review NPO: Yes ASA Class: II Final Preanesthetic Review: Meds/Allgs Chart Reviewed, Consent Obtained/Reviewed and Anes Risks/Benef Reviewed Patient Risk: Intermediate Procedure Risk: Intermediate Anesthetic Plan Anesthetic Plan: GA Disposition: Standard PACU
[2021-12-22] VITALS (21 sets, daily range): BP systolic 136–173; BP diastolic 76–119; PULSE 70–107; RESP 14–21; TEMP 36.2–36.6; O2SAT 95–98
[2021-12-22] MEDS: Lactated Ringers 1,000 ML 100 ML IVCONT (06:47)
[2021-12-22 06:55] LABS: COVID-19 Test Negative (Negative)
--- NOTE | 2021-12-22 09:40 | PM.OP ---
Brief Operative Note Date of Service: 12/22/21 Pre-op diagnosis: Left ACL re-rupture Post-op diagnosis: same Procedure: Revision ACL with allograft and hamstring autograft Implants: ACL button with TA allograft 11x30 tibial interference screw Surgeon: David Bucio MD Anesthesia: GETA and local Was an Pick Up Driver used for this Procedure?: Yes Pick Up Driver: Catrina Elizondo Estimated blood loss (mL): 20 IV fluids (mL): 1,000 Pathology: none sent Condition: stable Disposition: PACU
[2021-12-22] MEDS: fentaNYL citrate/PF 100 MCG/2 ML VIAL 25 MCG IVPUSH ×2 (09:58→11:03)
[2021-12-22] MEDS: HYDROmorphone HCl 0.5 MG/0.5 ML SYRINGE 0.25 MG IVPUSH ×3 (10:04→10:50)
[2021-12-22] MEDS: oxyCODONE HCl Immed Release 5 MG TABLET PO (11:12)
--- NOTE | 2021-12-22 13:52 | PC.NURSE ---
PT STATED FEELING NAUSEOUS WHILE IN THE DISCHARGE AREA. DR. LAWTON, ANESTHESIOLOGIST, CAME AND ASSESSED PATIENT. PT TOLD DR. LAWTON THAT HE WAS NO LONGER NAUSEOUS AND HE DIDN'T WANT THE OFFERED ZOFRAN. PT STATES FEELING BETTER AT THIS TIME. DR. RICE ALSO NOTIFIED THAT PATIENT WAS CONCERNED R/T DONATED SKIN TISSUE. PT TOLD THAT HE HAD BOTH HIS OWN AND A DONAR'S TISSUE PER DR. RICE (and that he had the same for his last procedure). PT WAS FINE WITH THAT. DR. RICE STATED THEY HAVE HAD THIS CONVERSATION BEFORE.
--- NOTE | 2021-12-28 12:39 | P.OP_ITS ---
Operative Note Operative Note Date of Service: 12/22/21 Narrative: Date of Service: 12/22/21 Pre-op diagnosis: Left ACL re-rupture Post-op diagnosis: same Procedure: Revision ACL with allograft and hamstring autograft Implants: ACL button with TA allograft 11x30 tibial interference screw Surgeon: David Bucio MD Anesthesia: GETA and local Was an Sap Ppm Consultant used for this Procedure?: Yes Sap Ppm Consultant: Catrina Elizondo Estimated blood loss (mL): 20 IV fluids (mL): 1,000 Pathology: none sent Condition: stable Disposition: PACU Procedure in detail: Patient was brought to the operating room placed supine on the arthroscopic table and prepped and draped in standard sterile fashion. A time-out was called to identify proper site proper procedure proper surgeon and IV antibiotics per weight were administered. Pivot shift was positive. I began by exsanguinating the limb and insufflating tourniquet to 300 mm Hg. I made a 2 cm incision medial to the tibial tubercles and identified the sartorius fascia. This was incised and the Semitendonosis was identified and stripped with a tendon stripped. This process was repeated for the gracilis which was small. I then made a standard anterolateral stab incision. The knee was insufflated with water and 30 degree arthroscope was placed. The suprapatellar pouch was normal the gutters were clean. I descended into the medial compartment where I made my far medial portal under direct visualization. The medial compartment was examined. there were minimal G 1 fibrillations and the meniscus was intact. There was an empty wall sign with the old ACL allograft hanging by a few small fibers. The allograft was opened on the back table. The lateral compartment was also examined. There were grade 1 changes throughout this compartment. I then resected the dysfunctional ACL allograft and perfromed a notchplasty. I then flexed the knee up and placed a k-wire through my femoral tunnel low and inside from the far medial portal and measured a 33 mm tunnel. THe allograft and autograft were prepared on the back table and I was able to double each loop for a quadrupled combination allo and autograft taht sized to an 11. An 11 mm reamer was then used to overdrill the k-wire to a depth of 23 and a 4.5 mm drill was used to finish off the tunnel. The tibial tunnel was then drilled through the autograft incision with a 55deg guide exiting at the ACL origin. I then examined both tunnels with the camera. There was bone throughout the entire tunnel. The graft was tensioned and then pulled through the tibia and the femur. The buttone was flipped on the femoral cortex and the knee was cycled. An 11x30 mm interference screw was then placed over a nitinol with the knee in hyper- extension and a posterior force on the tibial tubercle was applied. The knee was then taken through range of motion . There was no impingement. There was a negat erik picvot shift. I was very satisfied with the position and appearance of the graft. I then removed all instrumentation and closed the portals with skin glue. 25 mL of 2% Marcaine with epinephrine was injected into the joint and the surrounding soft tissues. Patient was then placed in sterile dressing extubated brought recovery room stable condition. There were no known complications.
== END 2021-12-22 14:00 | disposition home or self-care (01) ==
PROVIDERS: Anesthesiology; Visit Provider Orthopaedic Surgery
PROC: (CPT 29888; principal; 2021-12-22 07:30)
DX: S83.512A Sprain of anterior cruciate ligament of left knee, initial encounter (principal); Z98.890 Other specified postprocedural states; X58.XXXA Exposure to other specified factors, initial encounter; Y93.9 Activity, unspecified; Y92.9 Unspecified place or not applicable; Y99.8 Other external cause status; F41.8 Other specified anxiety disorders; I10 Essential (primary) hypertension; K51.90 Ulcerative colitis, unspecified, without complications; Z79.899 Other long term (current) drug therapy; Z90.49 Acquired absence of other specified parts of digestive tract; Z20.822 Contact with and (suspected) exposure to COVID-19
CPT/HCPCS: 29888; 87635; C1713; C1769; J0131; J0171; J0690; J1100; J1170; J2250; J2405; J3010

== ENCOUNTER 2022-04-12 14:00 | Outpatient (RCR) | payer OTHER, SELFPAY ==
--- NOTE | 2022-08-12 10:26 | MHC.PT.DC ---
[facility] [place] Office [place] Office [place] Office [address] Beth Araiza [address] [phone] F: [phone] F: [phone] F: [phone] F: [phone] Physical Therapy Discharge Report Diagnosis: ACL recon with allograft/autograft on 12/22/21 Date of Surgery: 12/22/21 Date of Evaluation: 12/28/21 Date of Discharge: 06/13/22 Treatments to Date: 21 Cancellations to Date: No Shows to Date: Discharge Status: Improved Function Independent with HEP Discharge Summary: Pt was progressing well. He eventually had to stop PT, however, due to other personal reasons. He is committed to keeping up with HEP on his own and will follow up via phone as needed. 04/12/22: pt was a bit late but we salvaged a challenging appt with higher level strength ex. he has been dealing with muscular soreness after PT which he was educated on. 04/07/22: pt has been back to being able to progress, thankfully. swelling is down and he is feeling much more comfortable with above program. we will continue to progress. 04/05/22: we were able to resume level of higher level ex today. no adverse reactions. swelling present to lesser degree. to s/s of residual issues from fall. 03/31; Pt reported good muscle soreness after RX with no c/o pain. 03/22/22: pt sustained a fall when he stepped on a grape at work yesterday. we spoke on the phone twice since and he came in today with significant swelling. we will hold future appts until after follow up with MD. 03/17/22: pt progressing functionally, progressing strength. able to push stairs pain free, but full of fatigue. 03/10/22: pt continues to be happy with progress. we are progressing weekly. improving well with stair activities/eccentric control. 03/08/22: pt progressing well still. reduced discomfort on stairs. reduced swelling today. we will continue scar tissue mobs NV. 03/03/22: pt progressing well with squat/balance activity. educated in Scar tissue mobs at home and patellar mobs. 02/24/22: pt continues to progress with strength and functional activities per protocol. some swelling present after 20 minute hike this past weekend. 02/10/22: progress SLR to 5# in clinic (he has been doing this at home) next visit. Can start gentle HS curls with PB on bed pain free. He can perform ex without brace in clinic in order to promote body awareness in controlled environment. He is aware of ROM limitations with CKC chain ex. 02/08/22: pt progressing well with skilled PT for knee strength. AAROM appropriate. progressing with gentle CKC ex for quad and hips. 02/01/22: pt has been feeling better overall with improved gait. we will continue to progress per protocol. 01/28/22: pt with slightly more swelling today. progressed with shuttle. RTB for hip. educated on HEP expectations. j02/04/22: progressing well with protocol. happy with progress at follow up per pt report. 01/25/22: progressing well with standing activities. still requires management with standing activity time as swelling accrues with increased time. 01/21/22: pain and swelling well controlled. progressing well with strength and ROM per protocol. 01/19/22: pt progressing well with skilled PT. AAROM flexion to 123. Ext full PROM. to add 1# next visit. Rec bike used for comfortable ROM. 01/11/22: ROM, patellar mobility and gait mechanics progress as per protocol. continue to progress as tolerated Next visit. Pt in [facility] this week for wedding. educated on items related to safety in travel. 01/07/22: fatigue with mini squats and weight shifts. improved gait after cues. improved performance with increased reps. 01/04/22: pt progressing well with skilled PT. AAROM flexion to 90. Quad set still fair. added to HEP SLR, ankle PF/DF and heel slides. Patient is a 36 year old R handed male who presents with s/s consistent with ACL recon. He has had 2 prior recons on same knee. He has also had infection after last surgery. 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 Patient past medical history includes 6 L knee surgeries. Current impairments include pain, swelling, ROM, strength, activity tolerance and functional mobility. Functional limitations include decreased ability to perform all bed mobility, transfers, and all standing activities. Patient is motivated with good rehab potential. Skilled PT will address impairments and functional limitations in order to achieve goals. Electronically signed by: Pepito Torres, PT Please sign and return to therapist. Thank you for your referral.
== END 2022-08-12 10:28 | disposition home or self-care (01) ==
LOC: HO.PTCHIC 14:00
PROVIDERS: Visit Provider Orthopaedic Surgery
DX: S83.512A Sprain of anterior cruciate ligament of left knee, initial encounter (principal); S83.207A Unspecified tear of unspecified meniscus, current injury, left knee, initial encounter
CPT/HCPCS: 97014; 97110; 97116; 97140; 97162; 97530

== ENCOUNTER 2023-04-28 12:53 | Outpatient (AMB) | payer OTHER, SELFPAY ==
--- NOTE | 2023-04-28 13:06 | MHC.OFFVIS ---
Intake Intake Visit Reasons: ov- S/P Left Knee ACL Revision 12/22/21 NE Intake Note: Mp is a 36 year old male patient who presents for a follow up visit and a status post left knee ACL revision 12/22/[address] Bucio. Patient reports he fell a couple days ago and states that he might of re injured his knee. He states that he is in pain when bending and he is in a knee brace. Allergies No Known Allergies [No Known Allergies*] Allergy (Verified 04/28/23 13:11) HPI ov- S/P Left Knee ACL Revision 12/22/21 NE HPI Details 37-year-old male who presents in the office today 6 months status post left knee arthroscopy for a medial meniscus bucket-handle tear which was preformed on 09/28/[address] Bucio. The patient states he fell a couple of days ago and states he might have re injured the left knee. He claims to have pain when bending the knee and when the knee is in the brace. [facility] Medical History (Updated 04/28/23 @ 13:25 by Gifty Waller) Anxiety Depression History of diverticulitis Diverticulosis Hypertension Ulcerative colitis Surgical History (Updated 03/25/22 @ 09:43 by Natasha Baker [facility]) History of repair of anterior cruciate ligament of left knee (12/22/21) S/P arthroscopic partial medial meniscectomy (09/28/21) History of incision and drainage (11/16/20) Hx of anterior cruciate ligament tear reconstruction (08/20/20) History of incision and drainage (10/29/20) Hx of anterior cruciate ligament surgery (08/30/18) H/O exploratory laparotomy (~2019) History of colonoscopy History of incisional hernia repair History of appendectomy H/O colectomy Social History Alcohol intake: never Patient Tobacco Use Status: Never used Tobacco 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 ROM is 0-100 degrees with discomfort. No tenderness to palpation over the lateral or medial joint lines. Negative anterior drawer. NVI. Assessment & Plan Assessment & Plan (1) Left knee sprain: Code(s): S83.92XA - Sprain of unspecified site of left knee, initial encounter Qualifiers: Encounter type: subsequent encounter Involved ligament of knee: unspecified ligament Qualified Code(s): S83.92XD - Sprain of unspecified site of left knee, subsequent encounter Plan Mr. Sadler is a 37-year-old male who presents in the office today 6 months status post left knee arthroscopy for a medial meniscus bucket-handle tear which was preformed on 09/28/[address] Bucio. The patient states he fell a couple of days ago and states he might have re injured the left knee. He claims to have pain when bending the knee and when the knee is in the brace. I recommended for the patient to rest, ice, and elevate the left knee. He is able to take anti-inflammatory medication PRN. He can follow up with me via phone in 1-2 weeks to let me know how he is doing. If the patient is still continuing to have pain or instability I would recommend an MRI of the left knee. Follow up will be in 1-2 weeks for a telehealth visit, or sooner if needed. X-rays of the left knee which were obtained while in the office today and were reviewed by me, Catrina Elizondo PA-C, revealed no acute fractures or dislocation. Orders: Orders XR knee standing BI Today M25.569 - Pain in unspecified knee XR knee LT 2V Today M25.569 - Pain in unspecified knee Patient Instructions: Scribed for Catrina Elizondo PA-C by Gifty Waller medical corps officer, on 04/28/2023 at 12:55 pm, EST. Coding Level of Care Code Est Pt Level 3 (05023) Diagnoses Sprain of left knee, unspecified ligament, subsequent encounter S83.92XD Encounter type: subsequent encounter Involved ligament of knee: unspecified ligament
== END 2023-04-28 14:32 | disposition home or self-care (01) ==
PROVIDERS: PCP Internal Medicine; Visit Provider Physician Assistant
DX: S83.92XD Sprain of unspecified site of left knee, subsequent encounter (principal)
CPT/HCPCS: 99213

== ENCOUNTER 2023-04-28 15:31 | Outpatient (REF) | payer OTHER, SELFPAY ==
--- NOTE | ~2023-04-28 | XR_ITS ---
EXAMINATION: XR KNEE, LEFT XR AP STANDING KNEES, BILATERAL CLINICAL INFORMATION: Pain. COMPARISON: 07/20/2021 left knee. 09/21/2016 right knee. TECHNIQUE: AP standing view of bilateral knees. [place] and lateral views of the left knee. of the left knee. FINDINGS: LEFT KNEE: Expected changes of prior left knee ACL repair with interval additional intervention since exam of 07/20/2021. Mild medial joint space narrowing. Tiny tricompartmental osteophytes. Moderate joint effusion. RIGHT KNEE: Minimal medial joint space narrowing and single AP view of the right knee. XR/XR knee LT 2V IMPRESSION: Expected changes of prior left knee ACL repair with interval additional intervention since exam of 07/20/2021.
--- NOTE | ~2023-04-28 | XR_ITS ---
EXAMINATION: XR KNEE, LEFT XR AP STANDING KNEES, BILATERAL CLINICAL INFORMATION: Pain. COMPARISON: 07/20/2021 left knee. 09/21/2016 right knee. TECHNIQUE: AP standing view of bilateral knees. [place] and lateral views of the left knee. of the left knee. FINDINGS: LEFT KNEE: Expected changes of prior left knee ACL repair with interval additional intervention since exam of 07/20/2021. Mild medial joint space narrowing. Tiny tricompartmental osteophytes. Moderate joint effusion. RIGHT KNEE: Minimal medial joint space narrowing and single AP view of the right knee. XR/XR knee standing BI IMPRESSION: Expected changes of prior left knee ACL repair with interval additional intervention since exam of 07/20/2021.
== END 2023-04-28 15:32 | disposition home or self-care (01) ==
LOC: HO.HOSX 15:31
PROVIDERS: Visit Provider Physician Assistant
DX: S83.92XD Sprain of unspecified site of left knee, subsequent encounter (principal)
CPT/HCPCS: 73560; 73565